=== PATIENT | male | born 1955 | race Caucasian/White ===

== ENCOUNTER 2017-01-25 07:27 | Emergency (ER) | payer MEDICARE, MEDICAID ==
[2017-01-25 07:51] VITALS: BP 157/99
--- NOTE | 2017-01-25 07:53 | EDM.PDOC ---
ED UPPER BACK/NECK PAIN/INJURY - General Chief Complaint: Back Pain or Injury Stated Complaint: PAIN FROM NECK TO SHOULDER Time Seen by Provider: 01/25/17 07:52 Source of Information: Reports: Patient, RN, RN notes reviewed History Limitations: Reports: No limitations - History of Present Illness INITIAL COMMENTS - FREE TEXT/NARRATIVE: C/O flare up of chronic neck pain with radiating pain through right trapezius region into Rt shoulder blade and down Rt arm to fingers. Pt has had 4 c-spine surgeries and had an MRI about 3 weeks ago at [facility] in [place]. Pt has been building a deck and flared up his neck pain. Denies any other acute injury. He also c/o a "lump" between the right 1st and 2nd MT heads that has increased in size over the past 3 weeks. He saw a doctor in [place] who referred him to a surgeon, but will not be seen for 5 weeks. Timing/Duration: Reports: Constant Location: Reports: radiating pain Quality: Reports: Same as previous episode, Sharp Severity: severe Place of Occurrence: home Improves with: Reports: None Worsens with: Reports: None Context: Reports: chronic pain/injury Associated Symptoms: Reports: Denies symptoms - Related Data Allergies/ADRs: Allergies Allergy/AdvReac Type Severity Reaction Status Date / Time No Known Allergies Allergy Verified 01/25/17 07:44 Home Meds: Home Meds . [No Known Home Meds] 01/25/17 [History] Past Medical History Musculoskeletal History: Reports: Neck pain, chronic, Other (see below) (Rt foot pain/cyst) Social & Family History - Family History Family Medical History: Noncontributory - Tobacco Use Smoking Status *Q: Never Smoker - Caffeine Use Caffeine Use: Reports: None - Recreational Drug Use Recreational Drug Use: No - Living Situation & Occupation Living situation: Reports: with significant other Occupation: disabled ED ROS GENERAL - Review of Systems Review Of Systems: ROS reveals no pertinent complaints other than HPI. ED EXAM, UPPER BACK/NECK PAIN - Physical Exam Exam: See Below Exam Limited By: No limitations General Appearance: alert, WD/WN, no apparent distress Throat/Mouth Exam: Normal voice, No airway compromise Head Exam: atraumatic, normocephalic Neck Exam: limited range of motion, muscle spasm, painful range of motion, tenderness (Rt cervical paraspinal). No: spinous processes tender Nexus Criteria: No: posterior, midline cervical tenderness, evidence of intoxication, altered level of consciousness, focal neurological deficit, painful distracting injuries Cardiovascular/Respiratory: regular rate, rhythm Extremities: normal range of motion, no pedal edema, normal capillary refill, other (rubbery tender mass between right foot 1st/2nd MT heads, no erythema or increased warmth) Course - Vital Signs Last Recorded V/S: Last Vital Signs Temp 36.3 C 01/25/17 07:35 Pulse 72 01/25/17 07:35 Resp 18 01/25/17 07:35 BP 157/99 H 01/25/17 07:35 Pulse Ox 98 01/25/17 07:35 - Orders/Labs/Meds Meds: Medications Discontinued Medications Generic Name Dose Route Start Last Admin Trade Name Irvin PRN Reason Stop Dose Admin Hydrocodone Bitart/Acetaminophen 1 tab 01/25/17 08:03 01/25/17 08:15 [place] 325-10 Mg PO 01/25/17 08:04 1 tab ONETIME ONE Administration Cyclobenzaprine HCl 10 mg 01/25/17 08:04 01/25/17 08:16 Flexeril PO 01/25/17 08:05 10 mg ONETIME ONE Administration Dexamethasone 8 mg 01/25/17 08:02 01/25/17 08:16 Dexamethasone IM 01/25/17 08:03 8 mg ONETIME ONE Administration Departure - Departure Time of Disposition: 08:04 Disposition: Home, Self-Care 01 Condition: fair Clinical Impression: Cervical radiculopathy Capsulitis of foot Qualifiers: Laterality: right Qualified Code(s): M77.51 - Other enthesopathy of right foot Instructions: Cervical Radiculopathy Forms: ED Department Discharge Additional Instructions: Wear rigid bottom surgical shoe on right foot. Rx: Diclofenac DR 75mg Rx: Gabapentin 300mg Follow up with Dr. Linda Abad at [facility] in [place] this week. Follow up to establish care with Dr. Emil Powell at [facility].
[2017-01-25] MEDS ORDERED: Dexamethasone 4 MG/ML SDV IM ONE (08:02)
[2017-01-25] MEDS ORDERED: Acetaminophen/HYDROcodone 325-10 MG Tab PO ONE (08:03)
[2017-01-25] MEDS ORDERED: Cyclobenzaprine 10 MG Tab PO ONE (08:04)
== END 2017-01-25 08:45 | disposition home or self-care (01) ==
LOC: DL.ED 07:27
DX: M54.12 Radiculopathy, cervical region (principal); M77.51 Other enthesopathy of right foot and ankle
CPT/HCPCS: 96372; 99283; A9270; J1100

== ENCOUNTER 2017-02-14 01:49 | Emergency (ER) | payer MEDICARE, MEDICAID ==
[2017-02-14] MEDS ORDERED: Acetaminophen/HYDROcodone 325-10 MG Tab PO ONE (02:31)
[2017-02-14] MEDS ORDERED: Acetaminophen/HYDROcodone 325-10 MG Tab ONE (02:31)
--- NOTE | 2017-02-14 02:33 | EDM.PDOC ---
ED HPI GENERAL MEDICAL PROBLEM - General Chief Complaint: General Stated Complaint: NOT FEELING WELL Time Seen by Provider: 02/14/17 02:29 Source of Information: Reports: Patient History Limitations: Reports: No Limitations - History of Present Illness INITIAL COMMENTS - FREE TEXT/NARRATIVE: c/o 2 weeks h/o pain in rectal area, so much that it's hard for him to sleep. sees Dr Abad Thursday. Rectal Pain Score (Numeric/FACES): 7 - Related Data Allergies Allergy/AdvReac Type Severity Reaction Status Date / Time Penicillins Allergy Hives Verified 02/14/17 02:08 Home Meds: Home Meds Acetaminophen/oxyCODONE [Percocet 325-5 MG] 1 tab PO ASDIRECTED PRN 02/14/17 [ History] Past Medical History Respiratory History: Reports: Sleep Apnea Musculoskeletal History: Reports: Neck Pain, Chronic, Other (See Below) Other Musculoskeletal History: Fusion of c- spine x2. And lower back ruptured disc. Psychiatric History: Reports: Anxiety, Depression - Past Surgical History GI Surgical History: Reports: Cholecystectomy Musculoskeletal Surgical History: Reports: Other (See Below) Social & Family History - Family History Family Medical History: Noncontributory - Tobacco Use Smoking Status *Q: Never Smoker Second Hand Smoke Exposure: No - Caffeine Use Caffeine Use: Reports: Soda - Recreational Drug Use Recreational Drug Use: No - Living Situation & Occupation Living situation: Reports: with Significant Other Occupation: Disabled ED ROS GENERAL - Review of Systems Review Of Systems: ROS reveals no pertinent complaints other than HPI. ED EXAM, GENERAL - Physical Exam Exam: See Below Exam Limited By: No Limitations General Appearance: Alert, WD/WN, No Apparent Distress Ears: Hearing Grossly Normal Throat/Mouth: Normal Voice, No Airway Compromise Head: Atraumatic Neck: Non-Tender, Full Range of Motion Respiratory/Chest: No Respiratory Distress Cardiovascular: Regular Rate, Rhythm GI/Abdominal: Soft, Non-Tender Rectal (Males) Exam: Normal Exam, Hemorrhoids, Other (multiple extrernal non thrombosed haemorrhoids.). No: Perirectal Abscess Neurological: Alert, Oriented, Normal Cognition, Normal Gait, No Motor/Sensory Deficits Psychiatric: Normal Affect, Normal Mood Skin Exam: Warm, Dry Lymphatic: No Adenopathy Course - Vital Signs Last Recorded V/S: Last Vital Signs Temp 35.5 C 02/14/17 01:59 Pulse 74 05/27/17 01:59 Resp 16 02/14/17 01:59 BP 160/104 H 02/14/17 01:59 Pulse Ox 99 02/14/17 01:59 Departure - Departure Time of Disposition: 02:31 Disposition: Home, Self-Care 01 Condition: good Clinical Impression: Hemorrhoidal skin tags - Discharge Information Instructions: Hemorrhoids, [id number] Forms: ED Department Discharge Additional Instructions: 1) try sitz bath 2) see Dr Abad Thursday for referral for Sr Nguyễn rx togo: andrzejco x 1
[2017-02-14] MEDS ORDERED: cloNIDine 0.1 MG Tab PO ONE (02:35)
[2017-02-14 03:16] VITALS: BP 142/94
== END 2017-02-14 03:19 | disposition home or self-care (01) ==
LOC: DL.ED 01:49
DX: K64.4 Residual hemorrhoidal skin tags (principal); F41.9 Anxiety disorder, unspecified; F32.9 Major depressive disorder, single episode, unspecified; Z90.49 Acquired absence of other specified parts of digestive tract; Z88.0 Allergy status to penicillin
CPT/HCPCS: 99282; A9270; 99283

== ENCOUNTER 2017-05-05 09:45 | Emergency (ER) | payer MEDICARE, MEDICAID ==
[2017-05-05 10:08] VITALS: BP 131/100
[2017-05-05] MEDS ORDERED: Sulfamethoxazole/Trimethoprim 800-160 MG Tab PO ONE (10:17)
[2017-05-05] MEDS ORDERED: Clindamycin HCl 150 MG Cap PO ONE (10:17)
[2017-05-05] MEDS ORDERED: Diphtheria,Pertussis(Acell),Tetanus Vaccine 0.5 ML SDV IM ONE (10:17)
--- NOTE | 2017-05-05 10:30 | EDM.PDOC ---
ED HPI GENERAL MEDICAL PROBLEM - General Chief Complaint: Bite:Animal, Insect Stated Complaint: PUNCH IN [id number].[id number] Time Seen by Provider: 05/05/17 10:20 Source of Information: Reports: Patient History Limitations: Reports: No Limitations - History of Present Illness INITIAL COMMENTS - FREE TEXT/NARRATIVE: This 61 yo male patient reports to the ED with a cat bite and scratches on his right arm. The patient reports the incident happened on Thursday (05/02/17). Since the incident, the patient has noticed increased pain and swelling of the right wrist and several areas of erythema up his right arm. The patient reports increased pain in his right wrist. The patient's significant other was treated for a cat bite yesterday. The cat was left behind by a family, but the cat is believed to be up to date on all immunizations. Onset: Gradual Duration: Day(s): (3), Constant, Getting Worse Location: Reports: Upper Extremity, Right Quality: Reports: Ache, Dull, Pressure Severity: Moderate Improves with: Reports: None Worsens with: Reports: None Context: Reports: Other Associated Symptoms: Reports: No Other Symptoms Right Wrist Pain Score (Numeric/FACES): 8 - Related Data Allergies Allergy/AdvReac Type Severity Reaction Status Date / Time Penicillins Allergy Hives Verified 02/14/17 02:08 Home Meds: Home Meds . [No Known Home Meds] 05/05/17 [History] Past Medical History Respiratory History: Reports: Sleep Apnea Musculoskeletal History: Reports: Neck Pain, Chronic, Other (See Below) Other Musculoskeletal History: Fusion of c- spine x2. And lower back ruptured disc. Psychiatric History: Reports: Anxiety, Depression - Past Surgical History GI Surgical History: Reports: Cholecystectomy Musculoskeletal Surgical History: Reports: Other (See Below) Social & Family History - Family History Family Medical History: Noncontributory - Tobacco Use Smoking Status *Q: Never Smoker Second Hand Smoke Exposure: No - Caffeine Use Caffeine Use: Reports: Soda - Recreational Drug Use Recreational Drug Use: No - Living Situation & Occupation Living situation: Reports: with Significant Other Occupation: Disabled ED ROS GENERAL - Review of Systems Review Of Systems: ROS reveals no pertinent complaints other than HPI. ED EXAM, ANIMAL BITE - Physical Exam Exam: Not Obtained Exam Limited By: No Limitations General Appearance: Alert, WD/WN, Mild Distress Eye Exam: Bilateral Eye: EOMI, Normal Inspection, PERRL Ears: Normal External Exam, Normal Canal, Hearing Grossly Normal, Normal TMs Nose: Normal Inspection, Normal Mucosa, No Blood Throat/Mouth: Normal Inspection, Normal Lips, Normal Teeth, Normal Gums, Normal Oropharynx, Normal Voice, No Airway Compromise Head: Atraumatic, Normocephalic Neck: Normal Inspection, Supple, Non-Tender, Full Range of Motion Respiratory/Chest: No Respiratory Distress, Lungs Clear, Normal Breath Sounds, No Accessory Muscle Use, Chest Non-Tender Cardiovascular: Normal Peripheral Pulses, Regular Rate, Rhythm, No Edema, No Gallop, No JVD, No Murmur, No Rub GI/Abdominal: Normal Bowel Sounds, Soft, Non-Tender, No Organomegaly, No Distention, No Abnormal Bruit, No Mass (Male) Exam: Deferred Rectal (Males) Exam: Deferred Back Exam: Normal Inspection, Full Range of Motion, NT Extremities: Joint Swelling (right wrist with evidence of healing wounds resulting from a cat (bite and scratches)) Neurological: Alert, Oriented, CN II-XII Intact, Normal Cognition, Normal Gait, Normal Reflexes, No Motor/Sensory Deficits Psychiatric: Normal Affect, Normal Mood Skin Exam: Other (The patient has erythema of the right wrist with several erythematous patches up his right arm (medial elbow and anterior shoulder). There was no evidence of drainage. ) Lymphadenopathy: Bilateral: No Adenopathy Lymphatic: No Adenopathy Course - Vital Signs Last Recorded V/S: Last Vital Signs Temp 36.6 C 05/05/17 09:49 Pulse 114 H 05/05/17 09:49 Resp 16 05/05/17 09:49 BP 131/100 H 05/05/17 09:49 Pulse Ox 97 05/05/17 09:49 - Orders/Labs/Meds Orders: Active Orders 24 hr Category Date Time Status Vaccines to be Administered [RC] PER UNIT ROUTINE Care 05/05/17 10:18 Ordered Meds: Medications Discontinued Medications Generic Name Dose Route Start Last Admin Trade Name Freq PRN Reason Stop Dose Admin Clindamycin HCl 300 mg 05/05/17 10:17 Cleocin PO 05/05/17 10:18 ONETIME ONE Diphtheria/Tetanus/Acell Pertussis 0.5 ml 05/05/17 10:17 Adacel IM 05/05/17 10:18 .ONCE ONE Trimethoprim/Sulfamethoxazole 1 tab 05/05/17 10:17 Septra Ds PO 05/05/17 10:18 ONETIME ONE Departure - Departure Time of Disposition: 10:25 Disposition: Home, Self-Care 01 Condition: Fair Clinical Impression: Cat bite involving extremity Cellulitis Qualifiers: Site of cellulitis: extremity Site of cellulitis of extremity: upper extremity Laterality: right Qualified Code(s): L03.113 - Cellulitis of right upper limb - Discharge Information Instructions: Animal Bite, [id number], Cellulitis, Adult, [id number] Referrals: PCP,None [Primary Care Provider] - Forms: ED Department Discharge Care Plan Goals: The patient was advised of the examination results during the visit. The patient was given an injection of Adacel, an oral dose of Bactrim DS and an oral dose of Clindamycin while in the ED. The patient was discharged with a script for Bactrim DS #20 to take 1 by mouth 2 times per day for 10 days and Clindamycin (300 mg) #40 to take 1 by mouth 4 times per day for 10 days. If the patient has any additional symptoms or concerns, the patient should follow-up with his primary care facility or return to the emergency department. - My Orders Last 24 Hours: My Active Orders 05/05/17 10:18 Vaccines to be Administered [RC] PER UNIT ROUTINE - Assessment/Plan Last 24 Hours: My Active Orders 05/05/17 10:18 Vaccines to be Administered [RC] PER UNIT ROUTINE
== END 2017-05-05 10:41 | disposition home or self-care (01) ==
LOC: DL.ED 09:45
DX: S61.551A Open bite of right wrist, initial encounter (principal); L03.113 Cellulitis of right upper limb; W55.01XA Bitten by cat, initial encounter; Z88.0 Allergy status to penicillin; Z23 Encounter for immunization; Z90.49 Acquired absence of other specified parts of digestive tract
CPT/HCPCS: 90471; 90715; 99283; A9270

== ENCOUNTER 2017-05-15 20:43 | Emergency (ER) | payer MEDICARE, MEDICAID ==
[2017-05-15] MEDS ORDERED: methylPREDNISolone Sodium Succinate 125 MG/2 ML SDV IM ONE (21:04)
[2017-05-15] MEDS ORDERED: diphenhydrAMINE 50 MG Cap PO ONE (21:04)
--- NOTE | 2017-05-15 21:09 | EDM.PDOC ---
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 Left Feet Pain Score (Numeric/FACES): 8 - Related Data Allergies Allergy/AdvReac Type Severity Reaction Status Date / Time Penicillins Allergy Hives Verified 05/15/17 20:51 Home Meds: Home Meds Acetaminophen/oxyCODONE [Percocet 325-10 MG] 1 tab PO TID PRN 05/15/17 [History] Clindamycin HCl [Clindamycin HCl] 1 tab PO QID 05/15/17 [History] Sulfamethoxazole/Trimethoprim [Sulfamethoxazole-Tmp Ds Tablet] 1 tab PO BID [History] Past Medical History Respiratory History: Reports: Sleep Apnea Musculoskeletal History: Reports: Neck Pain, Chronic, Other (See Below) Other Musculoskeletal History: Fusion of c- spine x2. And lower back ruptured disc. Psychiatric History: Reports: Anxiety, Depression - Past Surgical History GI Surgical History: Reports: Cholecystectomy Musculoskeletal Surgical History: Reports: Other (See Below) Social & Family History - Family History Family Medical History: Noncontributory - Tobacco Use Smoking Status *Q: Never Smoker Second Hand Smoke Exposure: No - Caffeine Use Caffeine Use: Reports: Soda - Recreational Drug Use Recreational Drug Use: No - Living Situation & Occupation Living situation: Reports: with Significant Other Occupation: Disabled ED ROS ALLERGIC REACTION - Review of Systems Review Of Systems: ROS reveals no pertinent complaints other than HPI. ED EXAM GENERAL NO PERIP PULSE - Physical Exam Exam: See Below Exam Limited By: No Limitations General Appearance: Alert, WD/WN, No Apparent Distress, Anxious Ears: Hearing Grossly Normal Throat/Mouth: Normal Voice, No Airway Compromise Head: Atraumatic Neck: Non-Tender, Full Range of Motion Respiratory/Chest: No Respiratory Distress Cardiovascular: Regular Rate, Rhythm GI/Abdominal: Soft, Non-Tender Extremities: Other (left plantar local swelling minimal erythema no lymphangitis , NV wnl) Neurological: Alert, Oriented, Normal Cognition, Normal Gait, No Motor/Sensory Deficits Psychiatric: Anxious Skin Exam: Warm, Dry, Normal Color Lymphatic: No Adenopathy Course - Vital Signs Last Recorded V/S: Last Vital Signs Temp 36.6 C 05/15/17 20:47 Pulse 89 05/15/17 20:47 Resp 18 05/15/17 20:47 BP 149/91 H 05/15/17 20:47 Pulse Ox 96 05/15/17 20:47 - Orders/Labs/Meds Orders: Active Orders 24 hr Category Date Time Status diphenhydrAMINE [Benadryl] Med 05/15/17 21:04 Once 50 mg PO ONETIME ONE methylPREDNISolone Sod Succ [Solu-MEDROL] Med 05/15/17 21:04 Once 125 mg IM ONETIME ONE Departure - Departure Time of Disposition: 21:07 Disposition: Home, Self-Care 01 Condition: Good Clinical Impression: Insect bite Qualifiers: Encounter type: initial encounter Qualified Code(s): W57.XXXA - Bitten or stung by nonvenomous insect and other nonvenomous arthropods, initial encounter - Discharge Information Instructions: Insect Bite, [id number] Additional Instructions: 1) take TWO benadryl 25mg 2 to 3 times daily for swelling and itch 2) follow up at clinic or recheck as needed rx given; medrol dospak - My Orders Last 24 Hours: My Active Orders 05/15/17 21:04 diphenhydrAMINE [Benadryl] 50 mg PO ONETIME ONE methylPREDNISolone Sod Succ [Solu-MEDROL] 125 mg IM ONETIME ONE - Assessment/Plan Last 24 Hours: My Active Orders 05/15/17 21:04 diphenhydrAMINE [Benadryl] 50 mg PO ONETIME ONE methylPREDNISolone Sod Succ [Solu-MEDROL] 125 mg IM ONETIME ONE
[2017-05-15 21:30] VITALS: BP 123/84
== END 2017-05-15 21:29 | disposition home or self-care (01) ==
LOC: DL.ED 20:43
DX: T63.451A Toxic effect of venom of hornets, accidental (unintentional), initial encounter (principal); Z88.0 Allergy status to penicillin; Z90.49 Acquired absence of other specified parts of digestive tract
CPT/HCPCS: 96372; 99283; J2930; Q0163

== ENCOUNTER 2017-07-17 08:06 | Emergency (ER) | payer MEDICAID, MEDICARE ==
--- NOTE | 2017-07-17 08:38 | EDM.PDOC ---
ED HPI GENERAL MEDICAL PROBLEM - General Chief Complaint: Upper Extremity Injury/Pain Stated Complaint: RIGHT ARM [id number] Time Seen by Provider: 07/17/17 08:22 Source of Information: Reports: Patient History Limitations: Reports: No Limitations - History of Present Illness INITIAL COMMENTS - FREE TEXT/NARRATIVE: 61 yo white male c/o 2 days of right elbow pain and weakness w/ decreased ROM Onset Date: 07/15/17 Onset Time: 10:00 Duration: Day(s): Location: Reports: Upper Extremity, Left Quality: Reports: Ache Severity: Moderate Improves with: Reports: Rest Worsens with: Reports: Movement Context: Reports: Activity, Trauma (previous Day injury) Associated Symptoms: Reports: No Other Symptoms Treatments LENS MOUNTER: Reports: Other (see below) Other Treatments LENS MOUNTER: Body back and Pain Right Elbow Pain Score (Numeric/FACES): 9 - Related Data Allergies Allergy/AdvReac Type Severity Reaction Status Date / Time Penicillins Allergy Hives Verified 07/17/17 08:33 Home Meds: Home Meds Acetaminophen/oxyCODONE [Percocet 325-10 MG] 1 tab PO TID PRN 05/15/17 [History] Clindamycin HCl [Clindamycin HCl] 1 tab PO QID 05/15/17 [History] Sulfamethoxazole/Trimethoprim [Sulfamethoxazole-Tmp Ds Tablet] 1 tab PO BID [History] Past Medical History Respiratory History: Reports: Sleep Apnea Musculoskeletal History: Reports: Neck Pain, Chronic, Other (See Below) Other Musculoskeletal History: Fusion of c- spine x2. And lower back ruptured disc. Psychiatric History: Reports: Anxiety, Depression - Past Surgical History GI Surgical History: Reports: Cholecystectomy Musculoskeletal Surgical History: Reports: Other (See Below) Other Musculoskeletal Surgeries/Procedures:: Knee surgery and back surgery Social & Family History - Family History Family Medical History: Noncontributory - Tobacco Use Smoking Status *Q: Never Smoker Second Hand Smoke Exposure: No - Caffeine Use Caffeine Use: Reports: Soda - Recreational Drug Use Recreational Drug Use: No - Living Situation & Occupation Living situation: Reports: with Significant Other Occupation: Disabled Review of Systems - Review of Systems Review Of Systems: See Below Constitutional: Reports: No Symptoms Eyes: Reports: No Symptoms Ears: Reports: No Symptoms Nose: Reports: No Symptoms Mouth/Throat: Reports: No Symptoms Respiratory: Reports: No Symptoms Cardiovascular: Reports: No Symptoms GI/Abdominal: Reports: No Symptoms Genitourinary: Reports: No Symptoms Musculoskeletal: Reports: Joint Pain (right elbow) Skin: Reports: No Symptoms Neurological: Reports: No Symptoms Psychiatric: Reports: No Symptoms ED EXAM, GENERAL - Physical Exam Exam: See Below Exam Limited By: No Limitations General Appearance: Alert, No Apparent Distress Eye Exam: Bilateral Eye: PERRL Ears: Normal External Exam Nose: Normal Inspection Throat/Mouth: Normal Inspection, Normal Lips Head: Atraumatic, Normocephalic Neck: Normal Inspection Respiratory/Chest: No Respiratory Distress, Lungs Clear Cardiovascular: Normal Peripheral Pulses, Regular Rate, Rhythm GI/Abdominal: Normal Bowel Sounds Back Exam: Normal Inspection Extremities: Normal Inspection, Normal Range of Motion, Other (pain w/ movement of right elbow ) Neurological: Alert, Oriented, CN II-XII Intact Psychiatric: Normal Affect Skin Exam: Warm, Dry, Intact, Normal Color Lymphatic: No Adenopathy Course - Vital Signs Last Recorded V/S: Last Vital Signs Temp 36.0 C 07/17/17 08:15 Pulse Resp 14 07/17/17 08:15 BP 154/93 H 07/17/17 08:15 Pulse Ox 99 07/17/17 08:15 Departure - Departure Time of Disposition: 08:48 Disposition: Home, Self-Care 01 Condition: Good Clinical Impression: Strain of elbow, right Qualifiers: Encounter type: initial encounter Qualified Code(s): S56.911A - Strain of unspecified muscles, fascia and tendons at forearm level, right arm, initial encounter - Discharge Information Instructions: Pain Medicine Instructions, [id number] Additional Instructions: rest Moist heat TID X 15 mins. For Pain take otc : ADVIL 600mg TID w/ Food OR TYLENOL ES 500mg QID as needed F/U w/ PCP for re-evaluation and possible referral to ORTHOPEDIC
--- NOTE | 2017-07-17 08:44 | CR ---
Clinical history: 61-year-old male complaining of elbow pain. Interpretation: 3 views right elbow confirm the presence of chronic arthritis i.e. bony spurs identif ied respectively at the insertion point of the triceps tendon posteriorly on the olecranon process pr oximal ulna and... both epicondyles distal humerus. No sign of pathologic skeletal lesion, right elbow joint effusion, acute fracture or dislocation.
[2017-07-17] MEDS ORDERED: Ketorolac 30 MG/ML SDV IM ONE (08:46)
[2017-07-17] MEDS ORDERED: Acetaminophen 500 MG Tab PO ONE (08:46)
[2017-07-17 09:03] VITALS: BP 134/92
== END 2017-07-17 09:05 | disposition home or self-care (01) ==
LOC: DL.ED 08:06
DX: S46.811A Strain of other muscles, fascia and tendons at shoulder and upper arm level, right arm, initial encounter (principal); Z88.0 Allergy status to penicillin; X58.XXXA Exposure to other specified factors, initial encounter
CPT/HCPCS: 73070; 96372; 99283; A9270; J1885

== ENCOUNTER 2017-09-07 20:05 | Inpatient (IN) | payer MEDICARE ==
[2017-09-07] MEDS ORDERED: Iopamidol 612 MG/ML 100 ML Bottle IVPUSH ONE (20:24)
[2017-09-07] MEDS ORDERED: HYDROmorphone 1 MG/ML Syringe IVPUSH ONE ×2 (20:25→22:11)
[2017-09-07] MEDS ORDERED: Ondansetron 4 MG/2 ML SDV IV ONE (20:25)
[2017-09-07] MEDS ORDERED: Sodium Chloride 0.9% 1,000 ML IV ONE ×2 (20:26→22:47)
[2017-09-07] MEDS ORDERED: Pantoprazole 40 MG Vial IVPUSH ONE (20:27)
--- NOTE | 2017-09-07 20:29 | EDM.PDOC ---
ED HPI GENERAL MEDICAL PROBLEM - General Chief Complaint: Abdominal Pain Stated Complaint: VOMITING, ABD PAINS, [id number] Time Seen by Provider: 09/07/17 20:15 Source of Information: Reports: Patient History Limitations: Reports: No Limitations - History of Present Illness INITIAL COMMENTS - FREE TEXT/NARRATIVE: ED with c/o severe sudden onset of abdominal pain and vomiting at 330. Vomited 8 times [employer], large amounts of liquid. Prior hx cholecystectomy. Pain generalized constant Onset: Today - Related Data Allergies Allergy/AdvReac Type Severity Reaction Status Date / Time Penicillins Allergy Hives Verified 09/07/17 20:13 Home Meds: Home Meds QUEtiapine Fumarate [Quetiapine Fumarate] 1 tab PO BEDTIME 09/07/17 [History] Past Medical History Respiratory History: Reports: Sleep Apnea Musculoskeletal History: Reports: Neck Pain, Chronic, Other (See Below) Other Musculoskeletal History: Fusion of c- spine x2. And lower back ruptured disc. Psychiatric History: Reports: Anxiety, Depression - Past Surgical History GI Surgical History: Reports: Cholecystectomy Musculoskeletal Surgical History: Reports: Other (See Below) Other Musculoskeletal Surgeries/Procedures:: Knee surgery and back surgery Social & Family History - Family History Family Medical History: Noncontributory - Tobacco Use Smoking Status *Q: Never Smoker Second Hand Smoke Exposure: No - Caffeine Use Caffeine Use: Reports: Soda - Alcohol Use Days Per Week of Alcohol Use: 1 Number of Drinks Per Day: 3 Total Drinks Per Week: 3 - Recreational Drug Use Recreational Drug Use: No - Living Situation & Occupation Living situation: Reports: with Significant Other Occupation: Disabled ED ROS GENERAL - Review of Systems Review Of Systems: See Below Constitutional: Reports: No Symptoms HEENT: Reports: No Symptoms Respiratory: Reports: No Symptoms Cardiovascular: Reports: No Symptoms Endocrine: Reports: No Symptoms GI/Abdominal: Reports: Abdominal Pain, Distension, Vomiting : Reports: No Symptoms Musculoskeletal: Reports: No Symptoms Skin: Reports: No Symptoms Neurological: Reports: No Symptoms ED EXAM, GI/ABD - Physical Exam Exam: See Below Exam Limited By: No Limitations General Appearance: Alert, Moderate Distress Eyes: Bilateral: EOMI Ears: Normal External Exam Nose: Normal Inspection Throat/Mouth: Normal Inspection Head: Atraumatic, Normocephalic Neck: Normal Inspection Respiratory/Chest: No Respiratory Distress, Lungs Clear Cardiovascular: Normal Peripheral Pulses, Regular Rate, Rhythm, Tachycardia GI/Abdominal Exam: Distended, Tender, Abnormal Bowel Sounds. No: Normal Bowel Sounds Back Exam: Normal Inspection, Full Range of Motion Extremities: Normal Inspection Neurological: Alert, Oriented, Normal Cognition Psychiatric: Normal Affect, Normal Mood Skin Exam: Warm, Dry, Intact, Normal Color Course - Vital Signs Last Recorded V/S: Last Vital Signs Temp 98.4 F 09/07/17 22:53 Pulse 104 H 09/07/17 22:53 Resp 16 09/07/17 22:53 BP 142/99 H 09/07/17 22:53 Pulse Ox 95 09/07/17 22:53 - Orders/Labs/Meds Orders: Active Orders 24 hr Category Date Time Status Cyclobenzaprine [Flexeril] Med 09/07/17 22:51 Active 10 mg PO Q8H PRN QUEtiapine [SEROquel] Med 09/08/17 21:00 Active 200 mg PO BEDTIME Medication Orders Acetaminophen (Tylenol) 650 mg PO Q4H PRN PRN Reason: Pain (Mild 1-3)/fever Hydrocodone Bitart/Acetaminophen ([place] 325-10 Mg) 1 tab PO Q4H PRN PRN Reason: Pain (moderate 4-6) Last Admin: 09/08/17 03:19 Dose: 1 tab Cyclobenzaprine HCl (Flexeril) 10 mg PO Q8H PRN PRN Reason: back pain/spasm Enoxaparin Sodium (Lovenox) 40 mg SUBCUT DAILY NILDA Hydromorphone HCl (Dilaudid) 1 mg IVPUSH Q2H PRN PRN Reason: Pain (severe 7-10) Potassium Chloride/Dextrose/Sod Cl (D5 1/2 Ns W/ 20 Meq/L Kcl) 1,000 mls @ 150 mls/hr IV ASDIRECTED NILDA Stop: 09/09/17 06:24 Last Admin: 09/08/17 00:11 Dose: 150 mls/hr Ondansetron HCl (Zofran) 8 mg IVPUSH Q8H PRN PRN Reason: Nausea/Vomiting Pantoprazole Sodium (Protonix Iv) 40 mg IVPUSH Q24H NILDA Promethazine HCl (Phenergan) 12.5 mg IM Q6H PRN PRN Reason: Nausea/Vomiting Quetiapine Fumarate (Seroquel) 200 mg PO BEDTIME [facility] Zolpidem Tartrate (Ambien) 5 mg PO BEDTIME PRN PRN Reason: Sleep Last Admin: 09/08/17 00:05 Dose: 5 mg Labs: Laboratory Tests 09/07/17 09/07/17 Range/Units 20:21 20:21 WBC 14.8 H (5.0-10.0) 10^3/uL RBC 5.98 (4.6-6.2) 10^6/uL Hgb 19.1 H (14.0-18.0) g/dL Hct 53.3 (40.0-54.0) % MCV 89.1 (80-100) fL MCH 31.9 (27.0-34.0) pg MCHC 35.8 H (33.0-35.0) g/dL Plt Count 208 (150-450) 10^3/uL Neut % (Auto) 92.1 H (42.2-75.2) % Lymph % (Auto) 2.3 L (20.5-50.1) % [place] % (Auto) 5.3 (2-8) % Eos % (Auto) 0.2 L (1.0-3.0) % Baso % (Auto) 0.1 (0.0-1.0) % Sodium 140 (135-145) mmol/L Potassium 3.9 (3.6-5.0) mmol/L Chloride 103 (101-111) mmol/L Carbon Dioxide 22.0 (21.0-31.0) mmol/L Anion Gap 18.9 BUN 29 H (7-18) mg/dL Creatinine 1.1 (0.6-1.3) mg/dL Est Cr Clr Drug Dosing 68.23 mL/min Estimated GFR (MDRD) > 60 BUN/Creatinine Ratio 26.36 Glucose 155 H (74-105) mg/dL Calcium 9.1 (8.4-10.2) mg/dl Total Bilirubin 1.2 H (0.2-1.0) mg/dL AST 29 (10-42) IU/L ALT 29 (10-60) IU/L Alkaline Phosphatase 66 (42-121) IU/L Total Protein 7.8 (6.7-8.2) g/dl Albumin 4.4 (3.2-5.5) g/dl Globulin 3.4 Albumin/Globulin Ratio 1.29 Amylase 35 (28-100) U/L Lipase 24 (22-51) U/L Meds: Medications Generic Name Dose Route Start Last Admin Trade Name Freq PRN Reason Stop Dose Admin Acetaminophen 650 mg 09/07/17 22:53 Tylenol PO Q4H PRN Pain (Mild 1-3)/fever Hydrocodone Bitart/Acetaminophen 1 tab 09/07/17 22:53 09/08/17 03:19 [place] 325-10 Mg PO 1 tab Q4H PRN Administration Pain (moderate 4-6) Cyclobenzaprine HCl 10 mg 09/07/17 22:51 Flexeril PO Q8H PRN back pain/spasm Enoxaparin Sodium 40 mg 09/08/17 09:00 Lovenox SUBCUT DAILY NILDA Hydromorphone HCl 1 mg 09/07/17 22:53 Dilaudid IVPUSH Q2H PRN Pain (severe 7-10) Potassium Chloride/Dextrose/Sod Cl 1,000 mls @ 150 mls/hr 09/07/17 23:45 00:11 D5 1/2 Ns W/ 20 Meq/L Kcl IV 09/09/17 06:24 150 mls/hr ASDIRECTED NILDA Administration Ondansetron HCl 8 mg 09/07/17 22:53 Zofran IVPUSH Q8H PRN Nausea/Vomiting Pantoprazole Sodium 40 mg 09/08/17 23:00 Protonix Iv IVPUSH Q24H NILDA Promethazine HCl 12.5 mg 09/07/17 22:53 Phenergan IM Q6H PRN Nausea/Vomiting Quetiapine Fumarate 200 mg 09/08/17 21:00 Seroquel PO BEDTIME NILDA Zolpidem Tartrate 5 mg 09/07/17 22:53 09/08/17 00:05 Ambien PO 5 mg BEDTIME PRN Administration Sleep Discontinued Medications Generic Name Dose Route Start Last Admin Trade Name Jaimeq PRN Reason Stop Dose Admin Hydromorphone HCl 1 mg 09/07/17 20:25 09/07/17 20:32 Dilaudid IVPUSH 09/07/17 20:26 1 mg ONETIME ONE Administration Hydromorphone HCl Confirm 09/07/17 22:11 09/07/17 22:18 Dilaudid Administered 09/07/17 22:12 1 mg Dose Administration 1 mg .ROUTE .STK-MED ONE Sodium Chloride 1,000 mls @ 999 mls/hr 09/07/17 20:26 09/07/17 20:30 Normal Saline IV 09/07/17 21:26 999 mls/hr .BOLUS ONE Administration Sodium Chloride 1,000 mls @ 999 mls/hr 09/07/17 22:47 09/07/17 23:07 Normal Saline IV 09/07/17 23:47 999 mls/hr .BOLUS ONE Administration Iopamidol 100 ml 09/07/17 20:24 09/07/17 21:38 Isovue-300 (61%) IVPUSH 09/07/17 20:25 100 ml ONETIME ONE Administration Metoclopramide HCl 10 mg 09/07/17 20:36 09/07/17 20:42 Reglan IVPUSH 09/07/17 20:37 10 mg ONETIME ONE Administration Ondansetron HCl 4 mg 09/07/17 20:25 09/07/17 20:30 Zofran IV 09/07/17 20:26 4 mg ONETIME ONE Administration Pantoprazole Sodium 40 mg 09/07/17 20:27 09/07/17 20:36 Protonix Iv IVPUSH 09/07/17 20:28 40 mg ONETIME ONE Administration Pantoprazole Sodium 40 mg 09/07/17 23:00 Protonix Iv IVPUSH Q24H NILDA Promethazine HCl Confirm 09/07/17 22:11 09/07/17 22:52 Phenergan Administered 09/07/17 22:12 Not Given Dose 25 mg .ROUTE .STK-MED ONE - Radiology Interpretation Free Text/Narrative:: CT abd: Suggestive of viral gastroenteritis, diverticula present, no signs of diverticulitis - Re-Assessments/Exams Free Text/Narrative Re-Assessment/Exam: 09/07/17 22:[address] Lugo here to evaluate patient. Patient admitted observation, abdominal pain , vomiting, dehydration Departure - Departure Time of Disposition: 22:50 Disposition: Admitted As Inpatient 66 Condition: Fair Clinical Impression: Abdominal pain Qualifiers: Abdominal location: generalized Qualified Code(s): R10.84 - Generalized abdominal pain Vomiting Qualifiers: Vomiting type: unspecified Vomiting Intractability: non-intractable Nausea presence: without nausea Qualified Code(s): R11.11 - Vomiting without nausea - Discharge Information
[2017-09-07] MEDS ORDERED: Metoclopramide 10 MG/2 ML SDV IVPUSH ONE (20:36)
[2017-09-07 20:51] LABS: CHLORIDE,CL 103 mmol/L (101-111); SODIUM,NA 140 mmol/L (135-145)
[2017-09-07] MEDS ORDERED: HYDROmorphone 1 MG/ML Syringe ONE (22:11)
[2017-09-07] MEDS ORDERED: Promethazine 25 MG/ML SDV IM ONE (22:11)
[2017-09-07] MEDS ORDERED: Promethazine 25 MG/ML SDV ONE (22:11)
[2017-09-07] MEDS ORDERED: Cyclobenzaprine 10 MG Tab PO PRN (22:51)
[2017-09-07] MEDS ORDERED: Promethazine 25 MG/ML SDV IM PRN (22:53)
[2017-09-07] MEDS ORDERED: Zolpidem 5 MG Tab PO PRN (22:53)
[2017-09-07] MEDS ORDERED: Acetaminophen 325 MG Tab PO PRN (22:53)
[2017-09-07] MEDS ORDERED: Ondansetron 4 MG/2 ML SDV IVPUSH PRN (22:53)
[2017-09-07] MEDS ORDERED: Pantoprazole 40 MG Vial IVPUSH SCH (23:00)
--- NOTE | 2017-09-07 23:14 | PCM.HP ---
H&P History of Present Illness - General Date of Service: 09/07/17 Admit Problem/Dx: Admission Diagnosis/Problem Admission Diagnosis/Problem Abdominal pain Source of Information: Patient, Significant Other History Limitations: Reports: No Limitations - History of Present Illness Initial Comments - Free Text/Narative: 61-year-old male with the past medical history of bipolar disorder, cervical spondylolysis, chronic back pain status post fusion of cervical spine, gout, migraine headache, history of cholecystectomy presents to the emergency room for having generalized abdominal pain, nausea, vomiting, one episode of diarrhea. Symptoms started today at 3:30 PM 2 hours after eating frozen pepperoni pizza that he had for a long unknown time in his freezer. He had multiple liquid emesis since then. He had one episode of large diarrhea before he came to the emergency room. He described his abdominal pain as cramping, rated between 6 and 9 out of 10, generalized, nothing mixed worse or better, made him sweat. Patient denies upper respiratory symptoms, chest pain, shortness breath, palpitation, cough, constipation, blood in the emesis, blood in stool, dysuria, urinary frequency, history of peptic ulcer, history of chronic GI disease, bowel obstruction, history of abdominal surgery other than cholecystectomy years ago, heart disease. Patient denies similar problem in the past. In emergency room patient received Dilaudid 1 mg twice which helped the pain. His laboratory data reported WBC 14.8 with left shift. Sodium 140. Potassium 3.9. Chloride 103. CO2 22. BNP 129. Creatinine 1.1. Glucose 155. Total bilirubin 1.2. AST 29. ALT 29. Alkaline phosphatase 66. Lipase 24. Amylase 35. CT abdomen reported no acute findings other than what is consistent with gastroenteritis. On exam patient looks in mild distress due to pain and nausea. His abdomen exam was significant for hypoactive bowel sounds and mild to moderate generalized tenderness to deep palpation, no rebound/rigidity/ guarding. He received 1 L of normal saline, pantoprazole IV, Reglan and Zofran in admission to the Dilaudid - Related Data Allergies/Adverse Reactions: Allergies Allergy/AdvReac Type Severity Reaction Status Date / Time Penicillins Allergy Hives Verified 09/07/17 20:13 Past Medical History Respiratory History: Reports: Sleep Apnea Musculoskeletal History: Reports: Neck Pain, Chronic, Other (See Below) Other Musculoskeletal History: Fusion of c- spine x2. And lower back ruptured disc. Psychiatric History: Reports: Anxiety, Depression - Past Surgical History GI Surgical History: Reports: Cholecystectomy Musculoskeletal Surgical History: Reports: Other (See Below) Other Musculoskeletal Surgeries/Procedures:: Knee surgery and back surgery Social & Family History - Family History Family Medical History: Noncontributory - Tobacco Use Smoking Status *Q: Never Smoker Second Hand Smoke Exposure: No - Caffeine Use Caffeine Use: Reports: Soda - Alcohol Use Days Per Week of Alcohol Use: 1 Number of Drinks Per Day: 3 Total Drinks Per Week: 3 - Recreational Drug Use Recreational Drug Use: No - Living Situation & Occupation Living situation: Reports: with Significant Other Occupation: Disabled H&P Review of Systems - Review of Systems: Review Of Systems: ROS reveals no pertinent complaints other than HPI. Exam - Exam Exam: See Below - Vital Signs Vital Signs: Last Vital Signs Temp 36.8 C 09/07/17 20:10 Pulse 127 H 09/07/17 20:10 Resp 26 H 09/07/17 20:10 BP 154/106 H 09/07/17 20:10 Pulse Ox 96 09/07/17 20:10 Weight: 95.254 kg - Exam General: Alert, Oriented, Cooperative, Mild Distress. No: Moderate Distress, Severe Distress, Sedated, Lethargic, Obtunded HEENT: Conjunctiva Clear, EACs Clear, EOMI, Hearing Intact, Mucosa Moist & [place] , Nares Patent, Normal Nasal Septum, Posterior Pharynx Clear, Pupils Equal, Pupils Reactive, TMs Clear Neck: Supple, Trachea Midline Lungs: Clear to Auscultation, Normal Respiratory Effort Cardiovascular: Regular Rate, Regular Rhythm, Normal S1, Normal S2 GI/Abdominal Exam: Soft, No Organomegaly, No Distention, No Abnormal Bruit, No Mass, Tender (Generalized mild to moderate tenderness), Abnormal Bowel Sounds ( Hypoactive). No: Distended, Guarding, Rigid, Rebound (Male) Exam: Deferred Rectal (Males) Exam: Deferred Back Exam: Normal Inspection, Full Range of Motion. No: CVA Tenderness (L), CVA Tenderness (R) Extremities: Normal Inspection, Normal Range of Motion, Non-Tender, No Pedal Edema, Normal Capillary Refill Skin: Warm, Dry, Intact Neurological: Cranial Nerves Intact, Strength Equal Bilateral. No: Focal Deficit Neuro Extensive - Mental Status: Alert, Oriented x3 Psychiatric: Alert, Normal Affect, Normal Mood. No: Suicidal Ideation, Homicidal Ideation, Hallucinations - Patient Data Result Diagrams: 09/07/17 20:21 09/07/17 20:21 *Q Meaningful Use (ADM) - VTE *Q VTE Criteria *Q: - Stroke *Q Stroke Criteria *Q: - AMI *Q AMI Criteria *Q: - Problem List (1) Generalized abdominal pain SNOMED Code(s): 478584486 ICD Code: R10.84 - GENERALIZED ABDOMINAL PAIN Status: Acute Priority: High Current Visit: Yes (2) Nausea and vomiting SNOMED Code(s): 40438437 ICD Code: R11.2 - NAUSEA WITH VOMITING, UNSPECIFIED Status: Acute Priority: High Current Visit: Yes (3) Diarrhea SNOMED Code(s): 17191608 ICD Code: R19.7 - DIARRHEA, UNSPECIFIED Status: Acute Priority: Medium Current Visit: Yes (4) Bipolar disorder SNOMED Code(s): 16575673 ICD Code: F31.9 - BIPOLAR DISORDER, UNSPECIFIED Status: Chronic Current Visit: Yes (5) Chronic back pain SNOMED Code(s): 328255972 ICD Code: M54.9 - DORSALGIA, UNSPECIFIED; G89.29 - OTHER CHRONIC PAIN Status: Chronic Current Visit: Yes Problem List Initiated/Reviewed/Updated: Yes Orders Last 24hrs: Medication Orders Sodium Chloride (Normal Saline) 1,000 mls @ 999 mls/hr IV .BOLUS ONE Stop: 09/07/17 23:47 Assessment/Plan Comment:: 61-year-old male with the past medical history of cholecystectomy, chronic back pain, bipolar disorder presents with generalized abdominal pain with nausea and vomiting, and diarrhea after eating frozen pizza. His laboratory data are significant for elevated WBC. He has no fever. Also suspecting gastroenteritis, viral versus bacterial. I explained to the patient that, also unlikely, I can't rule out other etiology also his CT did not report them such as appendicitis, bowel obstruction, mesenteric artery occlusion, other unknown etiology and reported her transfer to [place] where he can be evaluated by surgeon. Patient declined transfer and want to be treated here. Plan Patient received 2 L of normal saline in the emergency room -D5/half-normal saline/20 KCl at 1 50 mL per hour for 2 L -Nothing by mouth except medications and ice chips -Antiemetics as needed -NG tube if continued to have vomiting despite antiemetics -Abdomen x-ray in the morning -Ordered lactic acid -Ordered stool culture -Ordered C. difficile -Continue Seroquel for bipolar and sleep -Dilaudid, hydrocodone for pain as needed Lovenox for DVT prophylaxis He wants to be full code Plan of care was discussed with patient and he verbalized understanding agreed with the plan
[2017-09-08] MEDS: D5 1/2 NS w/ 20 mEq/L KCl 1,000 ML IV SCH (00:11)
[2017-09-08] MEDS: Acetaminophen/HYDROcodone 325-10 MG Tab PO PRN ×2 (03:19→13:58)
[2017-09-08] MEDS ORDERED: Ondansetron 4 MG/2 ML SDV IV ONE (12:45)
[2017-09-08] MEDS ORDERED: Pantoprazole 40 MG Vial IV ONE (12:45)
[2017-09-08] MEDS ORDERED: QUEtiapine 100 MG Tab PO ONE (12:45)
[2017-09-08] MEDS: Enoxaparin 40 MG/0.4 ML Syringe SUBCUT SCH (13:08)
[2017-09-08 13:27] LABS: CHLORIDE,CL 106 mmol/L (101-111); SODIUM,NA 138 mmol/L (135-145)
--- NOTE | 2017-09-08 17:40 | PCM.PN ---
- General Info Date of Service: 09/08/17 Admission Dx/Problem (Free Text): Admission Diagnosis/Problem Admission Diagnosis/Problem Abdominal pain Subjective Update: Patient stated that he is feeling much better. He still having nausea but no vomiting. He did not have bowel movement since yesterday but he had flatus passing one time this afternoon. He denies fever, chills, nausea, vomiting, chest pain, urinary symptoms, any other symptoms or concerns. - Patient Data Vitals - Most Recent: Last Vital Signs Temp 36.6 C 09/08/17 14:44 Pulse 73 09/08/17 14:44 Resp 20 09/08/17 14:44 BP 123/82 09/08/17 14:44 Pulse Ox 97 09/08/17 14:44 Weight - Most Recent: 95.254 kg I&O - Last 24 Hours: Intake & Output 09/08/17 09/08/17 09/08/17 06:59 14:59 22:59 Intake Total 250 Output Total 540 Balance -290 Lab Results Last 24 Hours: Laboratory Results - last 24 hr 09/08/17 Range/Units 00:00 Urine Color Yellow (YELLOW) Urine Appearance Clear (CLEAR) Urine pH 5.0 (5.0-9.0) Ur Specific [place] 1.015 (1.005-1.030) Urine Protein Negative (NEGATIVE) Urine Glucose (UA) Negative (NEGATIVE) Urine Ketones Negative (NEGATIVE) Urine Occult Blood Negative (NEGATIVE) Urine Nitrite Negative (NEGATIVE) Urine Bilirubin Negative (NEGATIVE) Urine Urobilinogen 0.2 (0.2-1.0) mg/dL Ur Leukocyte Esterase Negative (NEGATIVE) Urine RBC 0-5 /HPF Urine WBC 0-5 (0-5/HPF) /HPF Ur Epithelial Cells Not seen /HPF Urine Bacteria Rare (0-FEW/HPF) /HPF Med Orders - Current: Current Medications Acetaminophen (Tylenol) 650 mg PO Q4H PRN PRN Reason: Pain (Mild 1-3)/fever Hydrocodone Bitart/Acetaminophen ([place] 325-10 Mg) 1 tab PO Q4H PRN PRN Reason: Pain (moderate 4-6) Last Admin: 09/08/17 13:58 Dose: 1 tab Cyclobenzaprine HCl (Flexeril) 10 mg PO Q8H PRN PRN Reason: back pain/spasm Enoxaparin Sodium (Lovenox) 40 mg SUBCUT DAILY [facility] Last Admin: 09/08/17 13:08 Dose: Not Given Hydromorphone HCl (Dilaudid) 1 mg IVPUSH Q2H PRN PRN Reason: Pain (severe 7-10) Potassium Chloride/Dextrose/Sod Cl (D5 1/2 Ns W/ 20 Meq/L Kcl) 1,000 mls @ 150 mls/hr IV ASDIRECTED NILDA Stop: 09/09/17 06:24 Last Admin: 09/08/17 00:11 Dose: 150 mls/hr Ondansetron HCl (Zofran) 8 mg IVPUSH Q8H PRN PRN Reason: Nausea/Vomiting Last Admin: 09/08/17 13:59 Dose: 8 mg Pantoprazole Sodium (Protonix Iv) 40 mg IVPUSH Q24H [facility] Promethazine HCl (Phenergan) 12.5 mg IM Q6H PRN PRN Reason: Nausea/Vomiting Quetiapine Fumarate (Seroquel) 200 mg PO BEDTIME NILDA Zolpidem Tartrate (Ambien) 5 mg PO BEDTIME PRN PRN Reason: Sleep Last Admin: 09/08/17 00:05 Dose: 5 mg Discontinued Medications Hydromorphone HCl (Dilaudid) 1 mg IVPUSH ONETIME ONE Stop: 09/07/17 20:26 Last Admin: 09/07/17 20:32 Dose: 1 mg Hydromorphone HCl (Dilaudid) Confirm Administered Dose 1 mg .ROUTE .STK-MED ONE Stop: 09/07/17 22:12 Last Admin: 09/07/17 22:18 Dose: 1 mg Sodium Chloride (Normal Saline) 1,000 mls @ 999 mls/hr IV .BOLUS ONE Stop: 09/07/17 21:26 Last Admin: 09/07/17 20:30 Dose: 999 mls/hr Sodium Chloride (Normal Saline) 1,000 mls @ 999 mls/hr IV .BOLUS ONE Stop: 09/07/17 23:47 Last Admin: 09/07/17 23:07 Dose: 999 mls/hr Iopamidol (Isovue-300 (61%)) 100 ml IVPUSH ONETIME ONE Stop: 09/07/17 20:25 Last Admin: 09/07/17 21:38 Dose: 100 ml Metoclopramide HCl (Reglan) 10 mg IVPUSH ONETIME ONE Stop: 09/07/17 20:37 Last Admin: 09/07/17 20:42 Dose: 10 mg Ondansetron HCl (Zofran) 4 mg IV ONETIME ONE Stop: 09/07/17 20:26 Last Admin: 09/07/17 20:30 Dose: 4 mg Pantoprazole Sodium (Protonix Iv) 40 mg IVPUSH ONETIME ONE Stop: 09/07/17 20:28 Last Admin: 09/07/17 20:36 Dose: 40 mg Pantoprazole Sodium (Protonix Iv) 40 mg IVPUSH Q24H NILDA Last Admin: 09/08/17 13:26 Dose: Not Given Promethazine HCl (Phenergan) Confirm Administered Dose 25 mg .ROUTE .STK-MED ONE Stop: 09/07/17 22:12 Last Admin: 09/07/17 22:52 Dose: Not Given - Exam General: Alert, Oriented, Cooperative, No Acute Distress. No: Moderate Distress , Severe Distress, Sedated, Lethargic, Obtunded HEENT: Pupils Equal, Pupils Reactive, EOMI, Mucous Membr. Moist/Cane Beds Neck: Supple, Trachea Midline, No JVD Lungs: Clear to Auscultation, Normal Respiratory Effort Cardiovascular: Regular Rate, Regular Rhythm, No Murmurs, Irregular Rhythm GI/Abdominal Exam: Soft, No Organomegaly, No Distention, No Abnormal Bruit, No Mass, Tender (Mild to moderate generalized tenderness), Abnormal Bowel Sounds ( Hyperactive). No: Guarding, Rigid, Rebound (Male) Exam: Deferred Back Exam: Normal Inspection, Full Range of Motion. No: CVA Tenderness (L), CVA Tenderness (R) Extremities: Normal Inspection, Normal Range of Motion, Non-Tender, No Pedal Edema, Normal Capillary Refill Skin: Dry, Intact Neurological: No New Focal Deficit Psy/Mental Status: Alert, Normal Affect, Normal Mood - Problem List & Annotations (1) Generalized abdominal pain SNOMED Code(s): 021748539 Code(s): R10.84 - GENERALIZED ABDOMINAL PAIN Status: Acute Priority: High Current Visit: Yes (2) Nausea and vomiting SNOMED Code(s): 12675799 Code(s): R11.2 - NAUSEA WITH VOMITING, UNSPECIFIED Status: Acute Priority : High Current Visit: Yes (3) Diarrhea SNOMED Code(s): 67367570 Code(s): R19.7 - DIARRHEA, UNSPECIFIED Status: Acute Priority: Medium Current Visit: Yes (4) Bipolar disorder SNOMED Code(s): 29614387 Code(s): F31.9 - BIPOLAR DISORDER, UNSPECIFIED Status: Chronic Current Visit: Yes (5) Chronic back pain SNOMED Code(s): 423411834 Code(s): M54.9 - DORSALGIA, UNSPECIFIED; G89.29 - OTHER CHRONIC PAIN Status : Chronic Current Visit: Yes - Problem List Review Problem List Initiated/Reviewed/Updated: Yes - My Orders Last 24 Hours: My Active Orders 09/07/17 23:17 CULTURE STOOL [RM] Routine 09/07/17 23:18 C DIFFICILE TOXIN BY PCR [MREF] Routine 09/07/17 23:45 D5 1/2 NS w/ 20 mEq/L KCl 1,000 ml IV ASDIRECTED 09/08/17 05:11 LACTIC ACID [CHEM] AM 09/08/17 07:00 Acute Abdominal Series [Abdomen 1V Upright] [CR] Routine 09/08/17 23:00 Pantoprazole [ProTONIX IV] 40 mg IVPUSH Q24H - Plan Plan:: 61-year-old male with the past medical history of cholecystectomy, chronic back pain, bipolar disorder presents with generalized abdominal pain with nausea and vomiting, and diarrhea after eating frozen pizza. His laboratory data are significant for elevated WBC. He has no fever. Also suspecting gastroenteritis, viral versus bacterial. I explained to the patient that, also unlikely, I can't rule out other etiology also his CT did not report them such as appendicitis, bowel obstruction, mesenteric artery occlusion, other unknown etiology and reported her transfer to [place] where he can be evaluated by surgeon. Patient declined transfer and want to be treated here. Chest x-ray on 09/08/17 was done and radiologist called me and he was concern about the beginning of small bowel obstruction but also he said it could be gastroenteritis. Normal lactic acid Plan Patient received 2 L of normal saline in the emergency room -Since he is still nauseous we will place NG tube with intermittent suctioning -Continue D5/half-normal saline/20 KCl at 1 50 mL per hour -Nothing by mouth except medications and ice chips -Antiemetics as needed -Abdomen x-ray in the morning -Awaiting stool culture -Awaiting C. difficile -Continue Seroquel for bipolar and sleep -Dilaudid, hydrocodone for pain as needed Lovenox for DVT prophylaxis He wants to be full code Plan of care was discussed with patient and he verbalized understanding agreed with the plan
[2017-09-08] MEDS ORDERED: Benzonatate 100 MG Cap PO PRN (18:09)
--- NOTE | 2017-09-08 18:20 | CR ---
Clinical history: 61-year-old male with history cholecystectomy now hospitalized with abdominal pain and vomiting. Interpretation: Upright abdominal film (x2) abnormal. Dilatation several small bowel loops with differential air-fluid levels concentrated in the mid epiga strium and left upper quadrant of the abdomen suggests....* possibility of early or partial mechanica l small bowel obstruction. Clinical? Adhesions? Surgical clips gallbladder fossa right upper quadrant. Nonspecific large bowel pattern. No other foreign bodies, pathologic calcifications or free intraperi toneal air. Lung bases clear. Multilevel disc disease and chronic hypertrophic arthritic changes of the spine. (Radiopaque dye from recent CT exam defines the symmetrically distended urinary bladder)
[2017-09-08] MEDS: QUEtiapine 100 MG Tab PO SCH (22:12)
[2017-09-09] MEDS: Pantoprazole 40 MG Vial IVPUSH SCH ×2 (00:04→22:42)
[2017-09-09 06:29] LABS: CHLORIDE,CL 106 mmol/L (101-111); SODIUM,NA 138 mmol/L (135-145)
--- NOTE | 2017-09-09 09:45 | CR ---
Clinical history: 61-year-old male hospitalized for possible mechanical bowel obstruction (versus sev ere gastroenteritis). Recent NG tube placement. Interpretation:: Acute abdominal series (4 flat/upright films) confirm the presence of NG tube in the course of the esophagus but it is "kinked" at the gastroesophageal juncture and should be reposition ed. Cluster surgical brain right upper quadrant. *Normal bowel gas pattern throughout the course of the colon and no abnormal small bowel pattern iden tified on today's exam. No pathologic calcifications or abdominal soft tissue mass lesion. No free intraperitoneal air. Lung bases clear. CONCLUSION: No current evidence of mechanical bowel obstruction. (See comments regarding NG tube abov e)
[2017-09-09] MEDS: Enoxaparin 40 MG/0.4 ML Syringe SUBCUT SCH (09:46)
[2017-09-09] MEDS: HYDROmorphone 1 MG/ML Syringe IVPUSH PRN ×3 (09:53→20:33)
[2017-09-09] MEDS ORDERED: LORazepam 2 MG/ML Syringe IVPUSH PRN (10:12)
--- NOTE | 2017-09-09 10:17 | PCM.PN ---
- General Info Date of Service: 09/09/17 Admission Dx/Problem (Free Text): Admission Diagnosis/Problem Admission Diagnosis/Problem Abdominal pain Subjective Update: Patient stated that he is continuing to feeling better. His only complaint today is feeling weak and bloated in the abdomen. Abdominal pain is better but still there. He had NG tube placed yesterday and his nausea improved. No vomiting since yesterday. He is passing small amount of flatus. No bowel movement since admission. He feels hungry. Patient admitted feeling anxious and worrying because his from bowel obstruction. He denies fever, chills, nausea, vomiting, chest pain, urinary symptoms, any other symptoms or concerns. - Patient Data Vitals - Most Recent: Last Vital Signs Temp 36.2 C 09/09/17 08:33 Pulse 71 09/09/17 08:33 Resp 20 09/09/17 08:33 BP 130/83 09/09/17 08:33 Pulse Ox 96 09/09/17 08:33 Weight - Most Recent: 95.254 kg Lab Results Last 24 Hours: Laboratory Results - last 24 hr 09/08/17 09/08/17 09/08/17 Range/Units 06:30 06:30 06:30 WBC 5.2 (5.0-10.0) 10^3/uL RBC 4.58 L (4.6-6.2) 10^6/uL Hgb 14.8 D (14.0-18.0) g/dL Hct 42.4 (40.0-54.0) % MCV 92.6 D (80-100) fL MCH 32.3 (27.0-34.0) pg MCHC 34.9 (33.0-35.0) g/dL Plt Count 145 L (150-450) 10^3/uL Neut % (Auto) 79.7 H (42.2-75.2) % Lymph % (Auto) 11.3 L (20.5-50.1) % [place] % (Auto) 8.4 H (2-8) % Eos % (Auto) 0.4 L (1.0-3.0) % Baso % (Auto) 0.2 (0.0-1.0) % Sodium 138 (135-145) mmol/L Potassium 3.4 L (3.6-5.0) mmol/L Chloride 106 (101-111) mmol/L Carbon Dioxide 23.0 (21.0-31.0) mmol/L Anion Gap 12.4 BUN 22 H (7-18) mg/dL Creatinine 0.9 (0.6-1.3) mg/dL Est Cr Clr Drug Dosing 84.79 mL/min Estimated GFR (MDRD) > 60 BUN/Creatinine Ratio 24.44 Glucose 112 H (74-105) mg/dL Lactic Acid 1.3 (0.5-2.2) mmol/L Calcium 7.5 L D (8.4-10.2) mg/dl Magnesium 1.7 L (1.8-2.5) mg/dL Total Bilirubin 0.7 (0.2-1.0) mg/dL AST 28 (10-42) IU/L ALT 24 (10-60) IU/L Alkaline Phosphatase 48 (42-121) IU/L Total Protein 5.7 L (6.7-8.2) g/dl Albumin 3.3 (3.2-5.5) g/dl Globulin 2.4 Albumin/Globulin Ratio 1.38 09/09/17 09/09/17 Range/Units 05:50 05:50 WBC 2.7 L (5.0-10.0) 10^3/uL RBC 4.26 L (4.6-6.2) 10^6/uL Hgb 13.7 L (14.0-18.0) g/dL Hct 40.3 (40.0-54.0) % MCV 94.6 (80-100) fL MCH 32.2 (27.0-34.0) pg MCHC 34.0 (33.0-35.0) g/dL Plt Count 115 L (150-450) 10^3/uL Neut % (Auto) 45.4 (42.2-75.2) % Lymph % (Auto) 33.0 (20.5-50.1) % [place] % (Auto) 17.2 H (2-8) % Eos % (Auto) 4.0 H (1.0-3.0) % Baso % (Auto) 0.4 (0.0-1.0) % Sodium 138 (135-145) mmol/L Potassium 4.0 (3.6-5.0) mmol/L Chloride 106 (101-111) mmol/L Carbon Dioxide 27.0 (21.0-31.0) mmol/L Anion Gap 9.0 BUN 10 (7-18) mg/dL Creatinine 1.0 (0.6-1.3) mg/dL Est Cr Clr Drug Dosing 76.31 mL/min Estimated GFR (MDRD) > 60 BUN/Creatinine Ratio Glucose 115 H (74-105) mg/dL Lactic Acid (0.5-2.2) mmol/L Calcium 7.9 L (8.4-10.2) mg/dl Magnesium (1.8-2.5) mg/dL Total Bilirubin (0.2-1.0) mg/dL AST (10-42) IU/L ALT (10-60) IU/L Alkaline Phosphatase (42-121) IU/L Total Protein (6.7-8.2) g/dl Albumin (3.2-5.5) g/dl Globulin Albumin/Globulin Ratio Med Orders - Current: Current Medications Acetaminophen (Tylenol) 650 mg PO Q4H PRN PRN Reason: Pain (Mild 1-3)/fever Hydrocodone Bitart/Acetaminophen ([place] 325-10 Mg) 1 tab PO Q4H PRN PRN Reason: Pain (moderate 4-6) Last Admin: 09/08/17 13:58 Dose: 1 tab Benzocaine/Menthol (Cepacol Sore Throat) 1 lozenge MUCMEM Q2HR PRN PRN Reason: Sore Throat Benzonatate (Tessalon Perles) 100 mg PO TID PRN PRN Reason: Sore Throat Cyclobenzaprine HCl (Flexeril) 10 mg PO Q8H PRN PRN Reason: back pain/spasm Enoxaparin Sodium (Lovenox) 40 mg SUBCUT DAILY NILDA Last Admin: 09/09/17 09:46 Dose: 40 mg Hydromorphone HCl (Dilaudid) 1 mg IVPUSH Q2H PRN PRN Reason: Pain (severe 7-10) Last Admin: 09/09/17 09:53 Dose: 1 mg Potassium Chloride/Dextrose/Sod Cl (D5 1/2 Ns W/ 20 Meq/L Kcl) 1,000 mls @ 150 mls/hr IV ASDIRECTED NILDA Stop: 09/10/17 06:24 Last Admin: 09/08/17 00:11 Dose: 150 mls/hr Ondansetron HCl (Zofran) 8 mg IVPUSH Q8H PRN PRN Reason: Nausea/Vomiting Last Admin: 09/08/17 13:59 Dose: 8 mg Pantoprazole Sodium (Protonix Iv) 40 mg IVPUSH Q24H NILDA Last Admin: 09/09/17 00:04 Dose: Not Given Promethazine HCl (Phenergan) 12.5 mg IM Q6H PRN PRN Reason: Nausea/Vomiting Quetiapine Fumarate (Seroquel) 200 mg PO BEDTIME NILDA Last Admin: 09/08/17 22:12 Dose: Not Given Zolpidem Tartrate (Ambien) 5 mg PO BEDTIME PRN PRN Reason: Sleep Last Admin: 09/08/17 00:05 Dose: 5 mg Discontinued Medications Hydromorphone HCl (Dilaudid) 1 mg IVPUSH ONETIME ONE Stop: 09/07/17 20:26 Last Admin: 09/07/17 20:32 Dose: 1 mg Hydromorphone HCl (Dilaudid) Confirm Administered Dose 1 mg .ROUTE .STK-MED ONE Stop: 09/07/17 22:12 Last Admin: 09/07/17 22:18 Dose: 1 mg Sodium Chloride (Normal Saline) 1,000 mls @ 999 mls/hr IV .BOLUS ONE Stop: 09/07/17 21:26 Last Admin: 09/07/17 20:30 Dose: 999 mls/hr Sodium Chloride (Normal Saline) 1,000 mls @ 999 mls/hr IV .BOLUS ONE Stop: 09/07/17 23:47 Last Admin: 09/07/17 23:07 Dose: 999 mls/hr Iopamidol (Isovue-300 (61%)) 100 ml IVPUSH ONETIME ONE Stop: 09/07/17 20:25 Last Admin: 09/07/17 21:38 Dose: 100 ml Metoclopramide HCl (Reglan) 10 mg IVPUSH ONETIME ONE Stop: 09/07/17 20:37 Last Admin: 09/07/17 20:42 Dose: 10 mg Ondansetron HCl (Zofran) 4 mg IV ONETIME ONE Stop: 09/07/17 20:26 Last Admin: 09/07/17 20:30 Dose: 4 mg Pantoprazole Sodium (Protonix Iv) 40 mg IVPUSH ONETIME ONE Stop: 09/07/17 20:28 Last Admin: 09/07/17 20:36 Dose: 40 mg Pantoprazole Sodium (Protonix Iv) 40 mg IVPUSH Q24H NILDA Last Admin: 09/08/17 13:26 Dose: Not Given Promethazine HCl (Phenergan) Confirm Administered Dose 25 mg .ROUTE .STK-MED ONE Stop: 09/07/17 22:12 Last Admin: 09/07/17 22:52 Dose: Not Given - Exam General: Alert, Oriented, Cooperative, No Acute Distress, Mild Distress (Just due to feeling anxious). No: Moderate Distress, Severe Distress, Sedated, Lethargic, Obtunded HEENT: Pupils Equal, Pupils Reactive Neck: Supple, Trachea Midline, No JVD Lungs: Clear to Auscultation, Normal Respiratory Effort Cardiovascular: Regular Rate, Regular Rhythm, No Murmurs GI/Abdominal Exam: Normal Bowel Sounds, Soft, No Organomegaly, No Distention, No Abnormal Bruit, No Mass, Tender (Mild to moderate generalized tenderness). No: Distended, Guarding, Rigid, Rebound (Male) Exam: Deferred Back Exam: Normal Inspection, Full Range of Motion. No: CVA Tenderness (L), CVA Tenderness (R) Extremities: Normal Inspection, Normal Range of Motion, Non-Tender, No Pedal Edema, Normal Capillary Refill Skin: Dry, Intact Neurological: No New Focal Deficit Psy/Mental Status: Alert, Normal Affect, Normal Mood. No: Suicidal Ideation, Homicidal Ideation, Hallucinations - Problem List & Annotations (1) Generalized abdominal pain SNOMED Code(s): 294958702 Code(s): R10.84 - GENERALIZED ABDOMINAL PAIN Status: Acute Priority: High Current Visit: Yes (2) Nausea and vomiting SNOMED Code(s): 49889657 Code(s): R11.2 - NAUSEA WITH VOMITING, UNSPECIFIED Status: Acute Priority : High Current Visit: Yes (3) Diarrhea SNOMED Code(s): 80842950 Code(s): R19.7 - DIARRHEA, UNSPECIFIED Status: Acute Priority: Medium Current Visit: Yes (4) Bipolar disorder SNOMED Code(s): 96421434 Code(s): F31.9 - BIPOLAR DISORDER, UNSPECIFIED Status: Chronic Current Visit: Yes (5) Chronic back pain SNOMED Code(s): 628587704 Code(s): M54.9 - DORSALGIA, UNSPECIFIED; G89.29 - OTHER CHRONIC PAIN Status : Chronic Current Visit: Yes - Problem List Review Problem List Initiated/Reviewed/Updated: Yes - My Orders Last 24 Hours: My Active Orders 09/08/17 16:06 Nasogastric Orogastric Tube Insertion [OM.PC] Routine 09/08/17 16:09 Communication Order [RC] ROUTINE 09/08/17 18:09 Benzonatate [Tessalon Perles] 100 mg PO TID PRN 09/08/17 18:14 Benzocaine/Cetylpyrd/Menthol [Cepacol Sore Throat] 1 lozenge MUCMEM Q2HR PRN 09/08/17 23:00 Pantoprazole [ProTONIX IV] 40 mg IVPUSH Q24H 09/09/17 06:00 Small Bowel w Serial Film [CR] DAILY 09/10/17 06:00 Small Bowel w Serial Film [CR] DAILY 09/11/17 06:00 Small Bowel w Serial Film [CR] DAILY - Plan Plan:: 61-year-old male with the past medical history of cholecystectomy, chronic back pain, bipolar disorder presents with generalized abdominal pain with nausea and vomiting, and diarrhea after eating frozen pizza. His laboratory data are significant for elevated WBC. He has no fever. Also suspecting gastroenteritis, viral versus bacterial. I explained to the patient that, also unlikely, I can't rule out other etiology also his CT did not report them such as appendicitis, bowel obstruction, mesenteric artery occlusion, other unknown etiology and reported her transfer to [place] where he can be evaluated by surgeon. Patient declined transfer and want to be treated here. Abdomen x-ray on 09/08/17 was done and radiologist called me and he was concern about the beginning of small bowel obstruction but also he said it could be gastroenteritis. Normal lactic acid. Repeated abdominal x-ray on 09/09/17 reported no mechanical bowel obstruction. However reported that the NG tube is kinked in the stomach. NG tube had about 350 mL of bile output since was placed yesterday afternoon. Plan Patient is concerned about his condition because his from small bowel obstruction. At this time I told the patient that I don't not see any red flag symptoms or signs that would warrantee immediate surgical consult. However I offered to him a transfer to [facility] in [place] or [facility] in [place] today for a surgical consult. However patient stated that he does not feel that he is very ill and he would prefer to stay here. Patient received 2 L of normal saline in the emergency room -We will adjust the NG tube -Continue D5/half-normal saline/20 KCl at 175 mL per hour -Nothing by mouth except medications and ice chips -Antiemetics as needed -Awaiting stool culture and C. difficile but patient has not had a bowel movement -Continue Seroquel for bipolar and sleep -Dilaudid, hydrocodone for pain as needed -Ativan 1 mg every 8 hours as needed for anxiety. Lovenox for DVT prophylaxis He wants to be full code Plan of care was discussed with patient and he verbalized understanding agreed with the plan
[2017-09-09] MEDS: Benzocaine/Cetylpyridinium/Menthol Lozenge MUCMEM PRN (11:31)
--- NOTE | 2017-09-09 12:50 | CR ---
Clinical history: 61-year-old male NG tube placement (adjustment). Interpretation: AP supine film chest and upper abdomen confirm now satisfactory location nasogastric tube (tip appears to lie in the fundus left upper quadrant abdomen). No signs of aspiration.
[2017-09-09] MEDS: D5 1/2 NS w/ 20 mEq/L KCl 1,000 ML IV SCH ×2 (13:06→19:08)
[2017-09-09] MEDS: QUEtiapine 100 MG Tab PO SCH (20:32)
[2017-09-10] MEDS: D5 1/2 NS w/ 20 mEq/L KCl 1,000 ML IV SCH (01:45)
[2017-09-10] MEDS: HYDROmorphone 1 MG/ML Syringe IVPUSH PRN (06:20)
[2017-09-10] MEDS: Benzocaine/Cetylpyridinium/Menthol Lozenge MUCMEM PRN ×2 (06:40→11:11)
[2017-09-10 07:00] LABS: CHLORIDE,CL 103 mmol/L (101-111); SODIUM,NA 138 mmol/L (135-145)
[2017-09-10 07:51] VITALS: BP 135/89
[2017-09-10] MEDS ORDERED: D5 1/2 NS w/ 20 mEq/L KCl 1,000 ML IV SCH (09:30)
[2017-09-10] MEDS: Enoxaparin 40 MG/0.4 ML Syringe SUBCUT SCH (09:31)
--- NOTE | 2017-09-10 09:40 | PCM.DCSUM1 ---
Discharge Summary - Hospital Course Free Text/Narrative:: 61-year-old male with the past medical history of bipolar disorder, cervical spondylolysis, chronic back pain status post fusion of cervical spine, gout, migraine headache, history of cholecystectomy presents to the emergency room for having generalized abdominal pain, nausea, vomiting, one episode of diarrhea. Symptoms started on 09/07/70 at 3:30 PM 2 hours after eating frozen pepperoni pizza that he had for a long unknown time in his freezer. He had multiple liquid emesis since at that day. He had one episode of large diarrhea before he came to the emergency room. He described his abdominal pain as cramping, rated between 6 to 9 out of 10, generalized, nothing makes it worse or better, it made him sweat. Patient denies upper respiratory symptoms, chest pain, shortness breath, palpitation, cough, constipation, blood in the emesis, blood in stool, dysuria, urinary frequency, history of peptic ulcer, history of chronic GI disease, bowel obstruction, history of abdominal surgery other than cholecystectomy years ago, heart disease. Patient denies similar problem in the past. In emergency room patient received Dilaudid 1 mg twice which helped the pain. His laboratory data reported WBC 14.8 with left shift. Sodium 140. Potassium 3.9. Chloride 103. CO2 22. BNP 129. Creatinine 1.1. Glucose 155. Total bilirubin 1.2. AST 29. ALT 29. Alkaline phosphatase 66. Lipase 24. Amylase 35. CT abdomen reported no acute findings other than what is consistent with gastroenteritis. On admission exam patient looked in mild distress due to pain and nausea, abdomen exam was significant for hypoactive bowel sounds and mild to moderate generalized tenderness to deep palpation, no rebound/rigidity/ guarding. He received 1 L of normal saline, pantoprazole IV, Reglan and Zofran in admission to the Dilaudid. Patient gradually was getting better. Next day he was still nauseous and having abdominal pain. X-ray of the abdomen was done and there was concern of a beginning of mechanical small bowel obstruction according to the radiologist. NG tube was placed. For the last 30 hours the NG tube output is about 800 mL of bile-like fluid. Patient denies nausea for the last 24 hours however still complaining of abdominal pain. Now he point the pain is in the left lower quadrant and he is very concerned. He he admitted for the first time that he has been having intermittent rectal bleeding for the last 6 months. 6 weeks ago he had large amount of rectal bleeding. He has not have rectal bleeding on this admission. Patient has been nothing by mouth. He has not had bowel movement since admission. He he sporadically passes small amount of flatus. However patient states that he feels full and bloated and he should be passing more gas is and having bowel movement so he is very concerned. His according to him of small bowel obstruction. He seemed to be anxious and [facility] He wants to be transferred to [place] where he did his spine surgeries and where he has family, for further workup and more definitive diagnosis. I offered the patient repeating CAT scan today and removing the NG tube and let him try to eat and see if his bowels will start to move if abd CT does not show bowel obstruction. patient declined and wanted to be transferred to [place]. I ordered C. difficile and stool culture but he had not had bowel movement for the sample. Patient stated that usually he has bowel movement every morning and he did not have bowel movement 2 days prior to admission but had one episode of large diarrhea on day of admission. I spoke to at [place] in [place] who kindly accepted the patient. Patient was transferred in stable condition. We will continue home on maintenance fluid at 175 cc and received Dilaudid as needed for pain. - Discharge Data Discharge Date: 09/10/17 Discharge Disposition: DC/Tfer to Acute Hospital 02 Condition: Good - Discharge Diagnosis/Problem(s) (1) Generalized abdominal pain SNOMED Code(s): 307699838 ICD Code: R10.84 - GENERALIZED ABDOMINAL PAIN Status: Acute Priority: High Current Visit: Yes (2) Nausea and vomiting SNOMED Code(s): 40699119 ICD Code: R11.2 - NAUSEA WITH VOMITING, UNSPECIFIED Status: Acute Priority: High Current Visit: Yes (3) Diarrhea SNOMED Code(s): 74630982 ICD Code: R19.7 - DIARRHEA, UNSPECIFIED Status: Acute Priority: Medium Current Visit: Yes (4) Bipolar disorder SNOMED Code(s): 97002252 ICD Code: F31.9 - BIPOLAR DISORDER, UNSPECIFIED Status: Chronic Current Visit: Yes (5) Chronic back pain SNOMED Code(s): 983611673 ICD Code: M54.9 - DORSALGIA, UNSPECIFIED; G89.29 - OTHER CHRONIC PAIN Status: Chronic Current Visit: Yes - Discharge Plan Home Medications: Home Meds QUEtiapine Fumarate [Quetiapine Fumarate] 1 tab PO BEDTIME 09/07/17 [History] D5 1/2 NS w/ 20 mEq/L KCl 175 ml IV ASDIRECTED bag 09/10/17 [Rx] HYDROmorphone [Dilaudid] 1 mg IVPUSH Q2H PRN syringe 09/10/17 [Rx] Forms: ED Department Discharge - General Info Date of Service: 09/10/17 Admission Dx/Problem (Free Text: Admission Diagnosis/Problem Admission Diagnosis/Problem Abdominal pain Subjective Update: Patient denies nausea. He still feeling bloated and having abdominal pain. He seems to be anxious. Patient denies upper respiratory symptoms, chest pain, shortness breath, palpitation, cough, constipation, blood in the emesis, lateral weakness/numbness/tingling, dysuria, urinary frequency, or any other symptoms or concerns - Patient Data Vitals - Most Recent: Last Vital Signs Temp 36.9 C 09/10/17 07:50 Pulse 91 09/10/17 07:50 Resp 20 09/10/17 07:50 BP 135/89 09/10/17 07:50 Pulse Ox 97 09/10/17 07:50 Weight - Most Recent: 99.065 kg I&O - Last 24 hours: Intake & Output 09/09/17 09/10/17 09/10/17 22:59 06:59 14:59 Intake Total 1435 2375 Output Total 2175 2300 Balance -740 75 Lab Results - Last 24 hrs: Laboratory Results - last 24 hr 09/10/17 09/10/17 Range/Units 06:34 06:34 WBC 4.6 L (5.0-10.0) 10^3/uL RBC 4.53 L (4.6-6.2) 10^6/uL Hgb 14.5 (14.0-18.0) g/dL Hct 42.1 (40.0-54.0) % MCV 92.9 (80-100) fL MCH 32.0 (27.0-34.0) pg MCHC 34.4 (33.0-35.0) g/dL Plt Count 127 L (150-450) 10^3/uL Neut % (Auto) 61.3 (42.2-75.2) % Lymph % (Auto) 21.3 (20.5-50.1) % [place] % (Auto) 13.6 H (2-8) % Eos % (Auto) 3.1 H (1.0-3.0) % Baso % (Auto) 0.7 (0.0-1.0) % Sodium 138 (135-145) mmol/L Potassium 3.9 (3.6-5.0) mmol/L Chloride 103 (101-111) mmol/L Carbon Dioxide 29.0 (21.0-31.0) mmol/L Anion Gap 9.9 BUN 6 L (7-18) mg/dL Creatinine 1.0 (0.6-1.3) mg/dL Est Cr Clr Drug Dosing 76.31 mL/min Estimated GFR (MDRD) > 60 Glucose 104 (74-105) mg/dL Calcium 8.5 (8.4-10.2) mg/dl Med Orders - Current: Current Medications Acetaminophen (Tylenol) 650 mg PO Q4H PRN PRN Reason: Pain (Mild 1-3)/fever Hydrocodone Bitart/Acetaminophen ([place] 325-10 Mg) 1 tab PO Q4H PRN PRN Reason: Pain (moderate 4-6) Last Admin: 09/08/17 13:58 Dose: 1 tab Benzocaine/Menthol (Cepacol Sore Throat) 1 lozenge MUCMEM Q2HR PRN PRN Reason: Sore Throat Last Admin: 09/10/17 06:40 Dose: 1 lozenge Benzonatate (Tessalon Perles) 100 mg PO TID PRN PRN Reason: Sore Throat Cyclobenzaprine HCl (Flexeril) 10 mg PO Q8H PRN PRN Reason: back pain/spasm Enoxaparin Sodium (Lovenox) 40 mg SUBCUT DAILY NILDA Last Admin: 09/10/17 09:31 Dose: 40 mg Hydromorphone HCl (Dilaudid) 1 mg IVPUSH Q2H PRN PRN Reason: Pain (severe 7-10) Last Admin: 09/10/17 06:20 Dose: 1 mg Potassium Chloride/Dextrose/Sod Cl (D5 1/2 Ns W/ 20 Meq/L Kcl) 1,000 mls @ 175 mls/hr IV ASDIRECTED [facility] Lorazepam (Ativan) 1 mg IVPUSH Q6H PRN PRN Reason: Anxiety Last Admin: 09/09/17 15:41 Dose: 1 mg Ondansetron HCl (Zofran) 8 mg IVPUSH Q8H PRN PRN Reason: Nausea/Vomiting Last Admin: 09/08/17 13:59 Dose: 8 mg Pantoprazole Sodium (Protonix Iv) 40 mg IVPUSH Q24H [facility] Last Admin: 09/09/17 22:42 Dose: 40 mg Promethazine HCl (Phenergan) 12.5 mg IM Q6H PRN PRN Reason: Nausea/Vomiting Quetiapine Fumarate (Seroquel) 200 mg PO BEDTIME NILDA Last Admin: 09/09/17 20:32 Dose: 200 mg Zolpidem Tartrate (Ambien) 5 mg PO BEDTIME PRN PRN Reason: Sleep Last Admin: 09/08/17 00:05 Dose: 5 mg Discontinued Medications Hydromorphone HCl (Dilaudid) 1 mg IVPUSH ONETIME ONE Stop: 09/07/17 20:26 Last Admin: 09/07/17 20:32 Dose: 1 mg Hydromorphone HCl (Dilaudid) Confirm Administered Dose 1 mg .ROUTE .STK-MED ONE Stop: 09/07/17 22:12 Last Admin: 09/07/17 22:18 Dose: 1 mg Hydromorphone HCl (Dilaudid) 1 mg IVPUSH .STK-MED ONE Stop: 09/07/17 22:12 Sodium Chloride (Normal Saline) 1,000 mls @ 999 mls/hr IV .BOLUS ONE Stop: 09/07/17 21:26 Last Admin: 09/07/17 20:30 Dose: 999 mls/hr Sodium Chloride (Normal Saline) 1,000 mls @ 999 mls/hr IV .BOLUS ONE Stop: 09/07/17 23:47 Last Admin: 09/07/17 23:07 Dose: 999 mls/hr Potassium Chloride/Dextrose/Sod Cl (D5 1/2 Ns W/ 20 Meq/L Kcl) 1,000 mls @ 175 mls/hr IV ASDIRECTED NILDA Stop: 09/10/17 06:24 Last Admin: 09/10/17 01:45 Dose: 175 mls/hr Iopamidol (Isovue-300 (61%)) 100 ml IVPUSH ONETIME ONE Stop: 09/07/17 20:25 Last Admin: 09/07/17 21:38 Dose: 100 ml Metoclopramide HCl (Reglan) 10 mg IVPUSH ONETIME ONE Stop: 09/07/17 20:37 Last Admin: 09/07/17 20:42 Dose: 10 mg Ondansetron HCl (Zofran) 4 mg IV ONETIME ONE Stop: 09/07/17 20:26 Last Admin: 09/07/17 20:30 Dose: 4 mg Pantoprazole Sodium (Protonix Iv) 40 mg IVPUSH ONETIME ONE Stop: 09/07/17 20:28 Last Admin: 09/07/17 20:36 Dose: 40 mg Pantoprazole Sodium (Protonix Iv) 40 mg IVPUSH Q24H NILDA Last Admin: 09/08/17 13:26 Dose: Not Given Promethazine HCl (Phenergan) Confirm Administered Dose 25 mg .ROUTE .STK-MED ONE Stop: 09/07/17 22:12 Last Admin: 09/07/17 22:52 Dose: Not Given Promethazine HCl (Phenergan) 25 mg IM .STK-MED ONE Stop: 09/07/17 22:12 - Exam General: Reports: Alert, Oriented, Cooperative, No Acute Distress. Denies: Mild Distress, Moderate Distress, Severe Distress, Sedated, Lethargic, Obtunded HEENT: Reports: Pupils Equal, Pupils Reactive, Mucous Membr. Moist/[place] Neck: Reports: Supple, Trachea Midline, No JVD Lungs: Reports: Clear to Auscultation, Normal Respiratory Effort. Denies: Crackles, Rales, Rhonchi, Rub, Stridor, Wheezing Cardiovascular: Reports: Regular Rate, Regular Rhythm GI/Abdominal Exam: Soft, No Organomegaly, No Distention, No Abnormal Bruit, No Mass, Distended (Mildly), Tender (Mostly in the left lower quadrant). No: Guarding, Rigid, Rebound (Male) Exam: Deferred Rectal (Males) Exam: Deferred Back Exam: Reports: Normal Inspection, Full Range of Motion. Denies: CVA Tenderness (L), CVA Tenderness (R) Extremities: Normal Inspection, Normal Range of Motion, Non-Tender, No Pedal Edema, Normal Capillary Refill Skin: Reports: Warm, Dry Neurological: Reports: No New Focal Deficit Psy/Mental Status: Reports: Alert, Normal Affect, Normal Mood *Q Meaningful Use (DIS) - VTE *Q VTE Criteria *Q: - Stroke *Q Stroke Criteria *Q: - AMI *Q AMI Criteria *Q:
== END 2017-09-10 12:46 | DRG 392 ==
LOC: DL.ED 20:05 → OBSVTOIN 22:53 → DL.MS 22:53 → UNDOADMOB 22:53
PROVIDERS: ADMIT Family Medicine; ATTEND Family Medicine
DX: R10.84 Generalized abdominal pain (principal); R11.11 Vomiting without nausea; K52.9 Noninfective gastroenteritis and colitis, unspecified; G47.30 Sleep apnea, unspecified; K56.609 Unspecified intestinal obstruction, unspecified as to partial versus complete obstruction; M54.2 Cervicalgia; F32.9 Major depressive disorder, single episode, unspecified; F41.9 Anxiety disorder, unspecified; F31.9 Bipolar disorder, unspecified; G89.29 Other chronic pain; M54.9 Dorsalgia, unspecified; R19.7 Diarrhea, unspecified; Z88.0 Allergy status to penicillin
CPT/HCPCS: 36415; 74177; 80053; 82150; 83690; 85025; 96361; 96372; 96374; 96375; 96376; 99285; C9113; J1170 ×2; J2405; J2550; J2765; J7030; Q9967; 74000; 74020; 80048; 81001; 83605; 83735; 99284; A9270-GY; J1650; J2060; J3480

== ENCOUNTER 2017-11-04 05:48 | Day surgery (SDC) | payer MEDICARE ==
[2017-11-04] MEDS ORDERED: Midazolam 1 MG/ML 2 ML SDV IV ONE ×7 (05:49→07:05)
[2017-11-04] MEDS ORDERED: fentaNYL 100 MCG/2 ML SDV IV ONE ×3 (05:49→06:55)
[2017-11-04] MEDS ORDERED: Midazolam 1 MG/ML 2 ML SDV ONE (06:12)
[2017-11-04] MEDS ORDERED: fentaNYL 100 MCG/2 ML SDV ONE (06:12)
[2017-11-04] MEDS ORDERED: Dextrose 5%-0.45% NaCl 1,000 ML IV SCH (06:45)
--- NOTE | 2017-11-04 08:24 | OR ---
DATE: 11/04/2017 PROCEDURE: Total colonoscopy, cold snare polypectomy, and multiple pinch biopsies. INSTRUMENT USED: PCF-H180AL Olympus video colonoscope. PREMEDICATIONS: Fentanyl 100 mcg intravenous, Versed 4 mg intravenous. Nasal O2 cannula. The procedure was done under pulse oximetry, BP recording, and panel monitor. INDICATION: The patient with persistent diarrhea and rectal bleeding, unexplained, and not responsive to medical measures. Colonoscopic examination is done for detection of any polypoid lesions and removal, biopsies to be obtained for microscopic colitis, endoscopic hemostasis therapy if needed. DESCRIPTION OF PROCEDURE: Initial rectal exam was unremarkable. Rigid anoscopy showed moderate-sized internal hemorrhoids without bleeding from them. The colonoscope was passed with ease. In the proximal rectum, 3-mm sized benign- appearing polyp was noted, photograph was taken, cold snare polypectomy was done, the tissue was retrieved and sent for histopathology. Numerous scattered diverticula were noted in the distal left colon along with some deformity. The scope was passed with ease up to the ileocecal area, photographs were taken of the normal-appearing cecum identified by landmarks of appendiceal orifice and thin left ileocecal folds. Terminal ileum could not be intubated due to thin left ileocecal folds. No bleeding was noted from any of the visualized areas at the commencement of the examination. No stricture. No vascular ectasia. No large isolated ulcerations seen. No evidence of diffuse inflammatory bowel disease in the form of friability, contact bleeding, or ulcerations. Probing the proximal sides of folds and flexures, using adequate distention and clearing of the stool material, withdrawal of the scope was made. Multiple pinch biopsies were taken from the normal-appearing mucosa of the mid transverse colon, mid descending colon, and rectosigmoid, and sent for any histopathologic evidence for microscopic colitis. No bleeding was noted from any of the visualized areas at the completion of examination. IMPRESSION: 1. Internal hemorrhoids. 2. Diminutive rectal polyp. The patient tolerated the procedure well. [facility] /[id number]
[2017-11-04 10:03] VITALS: BP 131/85
== END 2017-11-04 09:25 | disposition home or self-care (01) ==
LOC: DL.ENDO 05:48
PROVIDERS: ATTEND Internal Medicine Gastroenterology
DX: K62.1 Rectal polyp (principal); K57.30 Diverticulosis of large intestine without perforation or abscess without bleeding; K64.8 Other hemorrhoids; E66.9 Obesity, unspecified; F41.1 Generalized anxiety disorder; N40.0 Benign prostatic hyperplasia without lower urinary tract symptoms; G89.4 Chronic pain syndrome; Z88.0 Allergy status to penicillin; Z91.030 Bee allergy status; Z88.8 Allergy status to other drugs, medicaments and biological substances; Z68.34 Body mass index [BMI] 34.0-34.9, adult
CPT/HCPCS: 45380; 45385; J2250; J3010; J7042; 88305

== ENCOUNTER 2018-01-24 14:40 | Emergency (ER) | payer MEDICARE, MEDICAID ==
[2018-01-24] MEDS ORDERED: Acetaminophen/HYDROcodone 325-10 MG Tab PO ONE (14:51)
[2018-01-24 15:11] VITALS: BP 160/109
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
[2018-01-24] MEDS ORDERED: Bacitracin Oint 1 GM U/D Packet TOP ONE (15:34)
== END 2018-01-24 16:04 | disposition home or self-care (01) ==
LOC: DL.ED 14:40
DX: S92.354A Nondisplaced fracture of fifth metatarsal bone, right foot, initial encounter for closed fracture (principal); I10 Essential (primary) hypertension; Z91.030 Bee allergy status; Z88.0 Allergy status to penicillin; Z88.5 Allergy status to narcotic agent; Z79.899 Other long term (current) drug therapy; W20.8XXA Other cause of strike by thrown, projected or falling object, initial encounter
CPT/HCPCS: 73630; 99283; A9270

== ENCOUNTER 2018-02-18 20:58 | Emergency (ER) | payer MEDICARE, MEDICAID ==
[2018-02-18 21:20] VITALS: BP 177/113
[2018-02-18] MEDS: Sodium Chloride 0.9% 10 ML Syringe FLUSH PRN (21:39)
[2018-02-18] MEDS: Sodium Chloride 0.9% 1,000 ML IV ONE (21:39)
[2018-02-18 22:01] LABS: CHLORIDE,CL 102 mmol/L (101-111); SODIUM,NA 137 mmol/L (135-145)
--- NOTE | 2018-02-18 22:21 | EDM.PDOC ---
ED HPI GENERAL MEDICAL PROBLEM - General Chief Complaint: Lower Extremity Injury/Pain Stated Complaint: [id number] SEVERE LEG PAIN AND SWELLING Time Seen by Provider: 02/18/18 22:10 Source of Information: Reports: Patient History Limitations: Reports: No Limitations - History of Present Illness INITIAL COMMENTS - FREE TEXT/NARRATIVE: states few weeks h/o bilateral leg pain and swelling, been seeing MD in [place] and has referral for "vein" specialist. states nobody can determine his problem. today has more pain in both legs and can hardly walk. states nobody has done any ultrasound for DVT. Bilateral Lower Leg Pain Score (Numeric/FACES): 8 - Related Data Allergies Allergy/AdvReac Type Severity Reaction Status Date / Time bee venom protein (honey bee) Allergy Hives Verified 02/18/18 21:17 Penicillins Allergy Hives Verified 02/18/18 21:17 MORPHINE SULFATE BEADS Allergy Rash Uncoded 02/18/18 21:17 Home Meds: Home Meds QUEtiapine Fumarate [Quetiapine Fumarate] 200 mg PO BEDTIME 09/07/17 [History] Allopurinol [Zyloprim] 100 mg PO DAILY 11/03/17 [History] Past Medical History HEENT History: Reports: Impaired Vision, Other (See Below) Other HEENT History: WEARS CORRECTIVE LENS - GLASSES Cardiovascular History: Reports: Hypertension Respiratory History: Reports: Bronchitis, Recurrent, Sleep Apnea Gastrointestinal History: Reports: Gastritis Genitourinary History: Reports: None Musculoskeletal History: Reports: Arthritis, Back Pain, Chronic, Gout, Neck Pain , Chronic, Other (See Below) Other Musculoskeletal History: Fusion of c- spine x2. And lower back ruptured disc. paresthesia. FRACTURE OF FOOT RIGHT. FRACTURE OF ELBOW Neurological History: Reports: Concussion, Headaches, Chronic Psychiatric History: Reports: Anxiety, Bipolar, Depression, Suicidal Ideation Endocrine/Metabolic History: Reports: Obesity/BMI 30+ Hematologic History: Reports: None Immunologic History: Reports: None Oncologic (Cancer) History: Reports: None Dermatologic History: Reports: None - Infectious Disease History Infectious Disease History: Reports: None - Past Surgical History Head Surgeries/Procedures: Reports: None HEENT Surgical History: Reports: Other (See Below) Other HEENT Surgeries/Procedures: Neck surgery 1996,2003,2007,2014 Cardiovascular Surgical History: Reports: None Respiratory Surgical History: Reports: None GI Surgical History: Reports: Cholecystectomy Male Surgical History: Reports: None Endocrine Surgical History: Reports: None Neurological Surgical History: Reports: C-Spine Musculoskeletal Surgical History: Reports: Other (See Below) Other Musculoskeletal Surgeries/Procedures:: Knee surgery and back surgery Oncologic Surgical History: Reports: None Dermatological Surgical History: Reports: None Social & Family History - Family History Family Medical History: Noncontributory - Tobacco Use Smoking Status *Q: Unknown Ever Smoked Second Hand Smoke Exposure: No - Caffeine Use Caffeine Use: Reports: Coffee Other Caffeine Use: OCCASIONALLY MOUTIAN DEW, DAILY - Alcohol Use Days Per Week of Alcohol Use: 7 Number of Drinks Per Day: 4 Total Drinks Per Week: 28 - Recreational Drug Use Recreational Drug Use: No - Living Situation & Occupation Living situation: Reports: with Significant Other Occupation: Disabled Review of Systems - Review of Systems Review Of Systems: ROS reveals no pertinent complaints other than HPI. ED EXAM, GENERAL - Physical Exam Exam: See Below Exam Limited By: No Limitations General Appearance: Alert, WD/WN, Anxious, Mild Distress Ears: Hearing Grossly Normal Throat/Mouth: Normal Voice, No Airway Compromise Head: Atraumatic Neck: Non-Tender, Full Range of Motion Respiratory/Chest: No Respiratory Distress Cardiovascular: Regular Rate, Rhythm GI/Abdominal: Soft, Non-Tender Extremities: No Pedal Edema, Other (tender in calf & thigh without erythema, no edema, gait limited to discomfort, NV wnl) Neurological: Alert, Oriented, Normal Cognition, No Motor/Sensory Deficits Psychiatric: Flat Affect Skin Exam: Warm, Dry, Normal Color Lymphatic: No Adenopathy Course - Vital Signs Last Recorded V/S: Last Vital Signs Temp 37.1 C 02/18/18 21:18 Pulse 85 02/18/18 21:18 Resp 20 02/18/18 21:18 BP 177/113 H 02/18/18 21:18 Pulse Ox 99 02/18/18 21:18 - Orders/Labs/Meds Orders: Active Orders 24 hr Category Date Time Status Peripheral IV Care [RC] . DIRECTED Care 02/18/18 21:30 Active Sodium Chloride 0.9% [Saline Flush] Med 02/18/18 21:30 Active 10 ml FLUSH ASDIRECTED PRN Peripheral IV Insertion Adult [OM.PC] Routine Oth 02/18/18 21:30 Ordered Medication Orders Sodium Chloride (Saline Flush) 10 ml FLUSH ASDIRECTED PRN PRN Reason: Keep Vein Open Last Admin: 02/18/18 21:39 Dose: 10 ml Labs: Laboratory Tests 02/18/18 02/18/18 02/18/18 Range/Units 21:35 21:35 21:35 WBC 7.4 (5.0-10.0) 10^3/uL RBC 4.71 (4.6-6.2) 10^6/uL Hgb 15.3 (14.0-18.0) g/dL Hct 43.4 (40.0-54.0) % MCV 92.1 (80-100) fL MCH 32.5 (27.0-34.0) pg MCHC 35.3 H (33.0-35.0) g/dL Plt Count 186 (150-450) 10^3/uL Neut % (Auto) 57.3 (42.2-75.2) % Lymph % (Auto) 27.3 (20.5-50.1) % [place] % (Auto) 11.2 H (2-8) % Eos % (Auto) 3.4 H (1.0-3.0) % Baso % (Auto) 0.8 (0.0-1.0) % D-Dimer, Quantitative 159 (0-400) ng/mL Sodium 137 (135-145) mmol/L Potassium 3.5 L (3.6-5.0) mmol/L Chloride 102 (101-111) mmol/L Carbon Dioxide 25.0 (21.0-31.0) mmol/L Anion Gap 13.5 BUN 15 (7-18) mg/dL Creatinine 0.9 (0.6-1.3) mg/dL Est Cr Clr Drug Dosing 85.10 mL/min Estimated GFR (MDRD) > 60 BUN/Creatinine Ratio 16.66 Glucose 85 (74-105) mg/dL Lactic Acid (0.5-2.2) mmol/L Calcium 8.9 (8.4-10.2) mg/dl Total Bilirubin 0.8 (0.2-1.0) mg/dL AST 29 (10-42) IU/L ALT 30 (10-60) IU/L Alkaline Phosphatase 70 (42-121) IU/L Total Protein 7.4 (6.7-8.2) g/dl Albumin 4.3 (3.2-5.5) g/dl Globulin 3.1 Albumin/Globulin Ratio 1.39 Urine Color (YELLOW) Urine Appearance (CLEAR) Urine pH (5.0-9.0) Ur Specific [place] (1.005-1.030) Urine Protein (NEGATIVE) Urine Glucose (UA) (NEGATIVE) Urine Ketones (NEGATIVE) Urine Occult Blood (NEGATIVE) Urine Nitrite (NEGATIVE) Urine Bilirubin (NEGATIVE) Urine Urobilinogen (0.2-1.0) mg/dL Ur Leukocyte Esterase (NEGATIVE) Urine RBC /HPF Urine WBC (0-5/HPF) /HPF Ur Epithelial Cells /HPF Urine Bacteria (0-FEW/HPF) /HPF Urine Opiates Screen (NEGATIVE) Ur Oxycodone Screen (NEGATIVE) Urine Methadone Screen (NEGATIVE) Ur Barbiturates Screen (NEGATIVE) U Tricyclic Antidepress (NEGATIVE) Ur Phencyclidine Scrn (NEGATIVE) Ur Amphetamine Screen (NEGATIVE) U Methamphetamines Scrn (NEGATIVE) Urine MDMA Screen (NEGATIVE) U Benzodiazepines Scrn (NEGATIVE) Urine Cocaine Screen (NEGATIVE) U Marijuana (THC) Screen (NEGATIVE) 02/18/18 02/18/18 02/18/18 Range/Units 21:35 22:41 22:41 WBC (5.0-10.0) 10^3/uL RBC (4.6-6.2) 10^6/uL Hgb (14.0-18.0) g/dL Hct (40.0-54.0) % MCV (80-100) fL MCH (27.0-34.0) pg MCHC (33.0-35.0) g/dL Plt Count (150-450) 10^3/uL Neut % (Auto) (42.2-75.2) % Lymph % (Auto) (20.5-50.1) % [place] % (Auto) (2-8) % Eos % (Auto) (1.0-3.0) % Baso % (Auto) (0.0-1.0) % D-Dimer, Quantitative (0-400) ng/mL Sodium (135-145) mmol/L Potassium (3.6-5.0) mmol/L Chloride (101-111) mmol/L Carbon Dioxide (21.0-31.0) mmol/L Anion Gap BUN (7-18) mg/dL Creatinine (0.6-1.3) mg/dL Est Cr Clr Drug Dosing mL/min Estimated GFR (MDRD) BUN/Creatinine Ratio Glucose (74-105) mg/dL Lactic Acid 1.5 (0.5-2.2) mmol/L Calcium (8.4-10.2) mg/dl Total Bilirubin (0.2-1.0) mg/dL AST (10-42) IU/L ALT (10-60) IU/L Alkaline Phosphatase (42-121) IU/L Total Protein (6.7-8.2) g/dl Albumin (3.2-5.5) g/dl Globulin Albumin/Globulin Ratio Urine Color Light yellow (YELLOW) Urine Appearance Clear (CLEAR) Urine pH 5.5 (5.0-9.0) Ur Specific [place] <= 1.005 (1.005-1.030) Urine Protein Negative (NEGATIVE) Urine Glucose (UA) Negative (NEGATIVE) Urine Ketones Negative (NEGATIVE) Urine Occult Blood Negative (NEGATIVE) Urine Nitrite Negative (NEGATIVE) Urine Bilirubin Negative (NEGATIVE) Urine Urobilinogen 0.2 (0.2-1.0) mg/dL Ur Leukocyte Esterase Negative (NEGATIVE) Urine RBC Not seen /HPF Urine WBC Not seen (0-5/HPF) /HPF Ur Epithelial Cells Rare /HPF Urine Bacteria Rare (0-FEW/HPF) /HPF Urine Opiates Screen Negative (NEGATIVE) Ur Oxycodone Screen Negative (NEGATIVE) Urine Methadone Screen Negative (NEGATIVE) Ur Barbiturates Screen Negative (NEGATIVE) U Tricyclic Antidepress Negative (NEGATIVE) Ur Phencyclidine Scrn Negative (NEGATIVE) Ur Amphetamine Screen Negative (NEGATIVE) U Methamphetamines Scrn Negative (NEGATIVE) Urine MDMA Screen Negative (NEGATIVE) U Benzodiazepines Scrn Negative (NEGATIVE) Urine Cocaine Screen Negative (NEGATIVE) U Marijuana (THC) Screen Negative (NEGATIVE) Meds: Medications Generic Name Dose Route Start Last Admin Trade Name Freq PRN Reason Stop Dose Admin Sodium Chloride 10 ml 02/18/18 21:30 02/18/18 21:39 Saline Flush FLUSH 10 ml ASDIRECTED PRN Administration Keep Vein Open Discontinued Medications Generic Name Dose Route Start Last Admin Trade Name Freq PRN Reason Stop Dose Admin Sodium Chloride 1,000 mls @ 999 mls/hr 02/18/18 21:29 02/18/18 21:39 Normal Saline IV 02/18/18 22:29 999 mls/hr .BOLUS ONE Administration Ketorolac Tromethamine 15 mg 02/18/18 22:22 02/18/18 22:46 Toradol IVPUSH 02/18/18 22:23 15 mg ONETIME ONE Administration - Re-Assessments/Exams Free Text/Narrative Re-Assessment/Exam: 02/18/18 23:06 s/p IV toradol = much better pain almost gone now. Departure - Departure Time of Disposition: 23:06 Disposition: Home, Self-Care 01 Condition: Good Clinical Impression: Muscle spasm of both lower legs - Discharge Information Instructions: Muscle Cramps and Spasms, [id number] Referrals: Myra Adrian MD [Primary Care Provider] - Forms: ED Department Discharge Additional Instructions: 1) elevate leg as much as possible next 48 hours 2) avoid excessive standing bending lifting straining 3) recheck if there is any change or concern - My Orders Last 24 Hours: My Active Orders 02/18/18 21:30 Peripheral IV Care [RC] . DIRECTED Sodium Chloride 0.9% [Saline Flush] 10 ml FLUSH ASDIRECTED PRN Peripheral IV Insertion Adult [OM.PC] Routine - Assessment/Plan Last 24 Hours: My Active Orders 02/18/18 21:30 Peripheral IV Care [RC] . DIRECTED Sodium Chloride 0.9% [Saline Flush] 10 ml FLUSH ASDIRECTED PRN Peripheral IV Insertion Adult [OM.PC] Routine
[2018-02-18] MEDS: Ketorolac 30 MG/ML SDV IVPUSH ONE (22:46)
== END 2018-02-18 23:09 | disposition home or self-care (01) ==
LOC: DL.ED 20:58
DX: M62.838 Other muscle spasm (principal); I10 Essential (primary) hypertension; E66.9 Obesity, unspecified; Z88.0 Allergy status to penicillin; Z91.030 Bee allergy status; Z88.5 Allergy status to narcotic agent; Z79.82 Long term (current) use of aspirin
CPT/HCPCS: 36415; 80053; 80305; 81001; 83605; 85025; 85379; 96361; 96374; 99283; J1885; J7030; J7050

== ENCOUNTER → 2018-12-30 | Outpatient (CLI) | payer MEDICAID, MEDICARE, OTHER | LOC: DL.MRI 09:42 | PROVIDERS: ATTEND Orthopaedic Surgery | DX: M23.91 Unspecified internal derangement of right knee (principal); R60.0 Localized edema; S76.111A Strain of right quadriceps muscle, fascia and tendon, initial encounter; M17.11 Unilateral primary osteoarthritis, right knee; Z98.890 Other specified postprocedural states; X58.XXXA Exposure to other specified factors, initial encounter | CPT/HCPCS: 73721-RT ==

== ENCOUNTER 2019-06-25 10:52 | Emergency (ER) | payer MEDICARE | END 2019-06-25 14:32 | disposition left against medical advice (07) | LOC: DL.ED 10:52 | DX: Z53.21 Procedure and treatment not carried out due to patient leaving prior to being seen by health care provider (principal) ==

== ENCOUNTER 2021-09-19 09:41 | Emergency (ER) | payer MEDICARE ==
[2021-09-19 10:04] VITALS: BP 131/87; PULSE 117
--- NOTE | 2021-09-19 10:17 | CR ---
PROCEDURE INFORMATION: Exam: XR Chest Exam date and time: 09/19/2021 9:58 AM Age: 65 years old Clinical indication: Other: Chest pain TECHNIQUE: Imaging protocol: XR of the chest. Views: 1 view. COMPARISON: No relevant prior studies available. FINDINGS: Lungs: The lungs are normally expanded and clear. Pleural spaces: Normal. Heart/Mediastinum: Normal heart and cardio-mediastinal silhouette. Vasculature: Normal pulmonary vessels and width of the vascular pedicle. Bones/joints: Intact and normally aligned. No suspicious lesion. IMPRESSION: No acute disease or suspicious finding.
[2021-09-19 10:31] LABS: ANION GAP 15.9 mEq/L (7-13)
[2021-09-19 10:50] LABS: CORONAVIRUS COVID-19 NAA NEGATIVE (NEGATIVE)
--- NOTE | 2021-09-19 11:48 | EDM.PDOC ---
ED HPI GENERAL MEDICAL PROBLEM - General Chief Complaint: Chest Pain Stated Complaint: CHEST PAIN /SHORTNESS OF BREATH Time Seen by Provider: 09/19/21 10:45 Source of Information: Reports: Patient, Provider History Limitations: Reports: No Limitations - History of Present Illness INITIAL COMMENTS - FREE TEXT/NARRATIVE: This 65 yo male patient reports to the ED with a week long history of chest pain. The patient was sent to the ED by his primary care facility due to the provider reading that he had ST elevation on his EKG. The patient reports he does have chest pain with exertion. The patient is scheduled for a stress test for 09/25/21. The patient also reports he has a headache from the sinus congestion. The patient was started on antibiotics for his sinus infection 3 day s ago. The patient reports he has been taking Tylenol and ibuprofen for his headache with little to no symptom improvement. Onset: Unknown/Unsure Duration: Week(s):, Intermittent Location: Reports: Head, Chest Quality: Reports: Ache, Dull Severity: Moderate Improves with: Reports: None Worsens with: Reports: None Context: Reports: Other Associated Symptoms: Reports: No Other Symptoms Treatments WORKDAY DIRECTOR: Reports: EKG, IV/IO Chest Pain Score (Numeric/FACES): 7 - Related Data Allergies Allergy/AdvReac Type Severity Reaction Status Date / Time bee venom protein (honey bee) Allergy Hives Verified 09/19/21 10:10 Penicillins Allergy Hives Verified 09/19/21 10:10 MORPHINE SULFATE BEADS Allergy Rash Uncoded 09/19/21 10:10 Home Meds: Home Meds QUEtiapine Fumarate [Quetiapine Fumarate] 200 mg PO BEDTIME 09/07/17 [History] allopurinoL [Zyloprim] 100 mg PO DAILY 11/03/17 [History] Past Medical History HEENT History: Reports: Impaired Vision, Other (See Below) Other HEENT History: WEARS CORRECTIVE LENS - GLASSES Cardiovascular History: Reports: Hypertension Respiratory History: Reports: Bronchitis, Recurrent, Sleep Apnea Gastrointestinal History: Reports: Gastritis Genitourinary History: Reports: None Musculoskeletal History: Reports: Arthritis, Back Pain, Chronic, Gout, Neck Pain, Chronic, Other (See Below) Other Musculoskeletal History: Fusion of c- spine x2. And lower back ruptured disc. paresthesia. FRACTURE OF FOOT RIGHT. FRACTURE OF ELBOW Neurological History: Reports: Concussion, Headaches, Chronic Psychiatric History: Reports: Anxiety, Bipolar, Depression, Suicidal Ideation Endocrine/Metabolic History: Reports: Obesity/BMI 30+ Hematologic History: Reports: None Immunologic History: Reports: None Oncologic (Cancer) History: Reports: None Dermatologic History: Reports: None - Infectious Disease History Infectious Disease History: Reports: None - Past Surgical History Head Surgeries/Procedures: Reports: None HEENT Surgical History: Reports: Other (See Below) Other HEENT Surgeries/Procedures: Neck surgery 1996,2003,2007,2014 Cardiovascular Surgical History: Reports: None Respiratory Surgical History: Reports: None GI Surgical History: Reports: Cholecystectomy Male Surgical History: Reports: None Endocrine Surgical History: Reports: None Neurological Surgical History: Reports: C-Spine Musculoskeletal Surgical History: Reports: Other (See Below) Other Musculoskeletal Surgeries/Procedures:: Knee surgery and back surgery Oncologic Surgical History: Reports: None Dermatological Surgical History: Reports: None Social & Family History - Family History Family Medical History: No Pertinent Family History - Tobacco Use Tobacco Use Status *Q: Never Tobacco User - Caffeine Use Caffeine Use: Reports: Soda Other Caffeine Use: OCCASIONALLY MOUTIAN DEW, DAILY - Alcohol Use Days Per Week of Alcohol Use: 5 Number of Drinks Per Day: 5 Total Drinks Per Week: 25 - Recreational Drug Use Recreational Drug Use: No - Living Situation & Occupation Living situation: Reports: with Significant Other Occupation: Disabled ED ROS GENERAL - Review of Systems Review Of Systems: Comprehensive ROS is negative, except as noted in HPI. ED EXAM, GENERAL - Physical Exam Exam: See Below Exam Limited By: No Limitations General Appearance: Alert, WD/WN, Anxious (due to being told he was having a heart attack by his primary care facility), Moderate Distress Eye Exam: Bilateral Eye: EOMI, Normal Inspection, PERRL Ears: Normal External Exam, Normal Canal, Hearing Grossly Normal, Normal TMs Nose: Normal Inspection, Normal Mucosa, No Blood Throat/Mouth: Normal Inspection, Normal Lips, Normal Teeth, Normal Gums, Normal Oropharynx, Normal Voice, No Airway Compromise Head: Sinus Tenderness Neck: Normal Inspection, Supple, Non-Tender, Full Range of Motion Respiratory/Chest: No Respiratory Distress, Lungs Clear, Normal Breath Sounds, No Accessory Muscle Use, Chest Non-Tender Cardiovascular: Normal Peripheral Pulses, Regular Rate, Rhythm, No Edema, No Gallop, No JVD, No Murmur, No Rub GI/Abdominal: Normal Bowel Sounds, Soft, Non-Tender, No Organomegaly, No Distention, No Abnormal Bruit, No Mass (Male) Exam: Deferred Rectal (Males) Exam: Deferred Back Exam: Normal Inspection, Full Range of Motion, NT Extremities: Normal Inspection, Normal Range of Motion, Non-Tender, Normal Capillary Refill, No Pedal Edema Neurological: Alert, Oriented, CN II-XII Intact, Normal Cognition, Normal Gait, Normal Reflexes, No Motor/Sensory Deficits Psychiatric: Normal Affect, Normal Mood Skin Exam: Warm, Dry, Intact, Normal Color, No Rash Lymphatic: No Adenopathy #1 Interpretation EKG Date: 09/19/21 Time: 09:49 Rhythm: Other (Sinus Tach) Rate (Beats/Min): 111 [place]: Normal P-Wave: Present QRS: Normal ST-T: Normal QT: Normal Comparison: NA - No Prior EKG Course - Vital Signs Last Recorded V/S: Last Vital Signs Temp 98 F 09/19/21 10:03 Pulse 117 H 09/19/21 10:03 Resp 20 09/19/21 10:03 BP 131/87 09/19/21 10:03 Pulse Ox 92 L 09/19/21 10:03 - Orders/Labs/Meds Orders: Active Orders 24 hr Category Date Time Status Ketorolac [Toradol] Med 09/19/21 12:53 Once 30 mg IVPUSH ONETIME ONE Labs: Laboratory Tests 09/19/21 09/19/21 09/19/21 Range/Units 09:55 09:55 09:55 WBC 9.1 (5.0-10.0) 10^3/uL RBC 4.80 (4.6-6.2) 10^6/uL Hgb 15.3 (14.0-18.0) g/dL Hct 45.2 (40.0-54.0) % MCV 94.2 (80-100) fL MCH 31.9 (27.0-34.0) pg MCHC 33.8 (33.0-35.0) g/dL Plt Count 229 (150-450) 10^3/uL Neut % (Auto) 86.7 H (42.2-75.2) % Lymph % (Auto) 7.4 L (20.5-50.1) % [place] % (Auto) 5.6 (2-8) % Eos % (Auto) 0.1 L (1.0-3.0) % Baso % (Auto) 0.2 (0.0-1.0) % D-Dimer, Quantitative (0-400) ng/mL Sodium 134 L (136-145) mmol/L Potassium 4.9 (3.5-5.1) mmol/L Chloride 95 L (98-107) mmol/L Carbon Dioxide 28 (21-32) mmol/L Anion Gap 15.9 H (7-13) mEq/L BUN 52 H (7-18) mg/dL Creatinine 1.80 H (0.70-1.30) mg/dL Est Cr Clr Drug Dosing 40.91 mL/min Estimated GFR (MDRD) 38 BUN/Creatinine Ratio 28.9 (No establ ref range) Glucose 211 H (70-99) mg/dL Lactic Acid 1.90 H (0.56-1.39) mmol/L Calcium 10.4 H (8.5-10.1) mg/dL Total Bilirubin 0.4 (0.2-1.0) mg/dL AST 20 (15-37) U/L ALT 55 (16-63) U/L Alkaline Phosphatase 98 (46-116) U/L Troponin I High Sens 6 (<=76) pg/mL Total Protein 8.0 (6.4-8.2) g/dL Albumin 3.8 (3.4-5.0) g/dL Globulin 4.2 Albumin/Globulin Ratio 0.9 Influenza Type A RNA (NEGATIVE) Influenza Type B RNA (NEGATIVE) SARS-CoV-2 RNA (MANUEL) (NEGATIVE) 09/19/21 09/19/21 Range/Units 09:55 10:03 WBC (5.0-10.0) 10^3/uL RBC (4.6-6.2) 10^6/uL Hgb (14.0-18.0) g/dL Hct (40.0-54.0) % MCV (80-100) fL MCH (27.0-34.0) pg MCHC (33.0-35.0) g/dL Plt Count (150-450) 10^3/uL Neut % (Auto) (42.2-75.2) % Lymph % (Auto) (20.5-50.1) % [place] % (Auto) (2-8) % Eos % (Auto) (1.0-3.0) % Baso % (Auto) (0.0-1.0) % D-Dimer, Quantitative 907 H (0-400) ng/mL Sodium (136-145) mmol/L Potassium (3.5-5.1) mmol/L Chloride (98-107) mmol/L Carbon Dioxide (21-32) mmol/L Anion Gap (7-13) mEq/L BUN (7-18) mg/dL Creatinine (0.70-1.30) mg/dL Est Cr Clr Drug Dosing mL/min Estimated GFR (MDRD) BUN/Creatinine Ratio (No establ ref range) Glucose (70-99) mg/dL Lactic Acid (0.56-1.39) mmol/L Calcium (8.5-10.1) mg/dL Total Bilirubin (0.2-1.0) mg/dL AST (15-37) U/L ALT (16-63) U/L Alkaline Phosphatase (46-116) U/L Troponin I High Sens (<=76) pg/mL Total Protein (6.4-8.2) g/dL Albumin (3.4-5.0) g/dL Globulin Albumin/Globulin Ratio Influenza Type A RNA Negative (NEGATIVE) Influenza Type B RNA Negative (NEGATIVE) SARS-CoV-2 RNA (MANUEL) Negative (NEGATIVE) Meds: Medications Discontinued Medications Generic Name Dose Route Start Last Admin Trade Name Freq PRN Reason Stop Dose Admin Iopamidol 100 ml 09/19/21 11:53 09/19/21 12:11 Iopamidol 755 Mg/Ml 100 Ml Bottle IVPUSH 09/19/21 11:54 80 ml ONETIME ONE Administration - Re-Assessments/Exams Free Text/Narrative Re-Assessment/Exam: 09/19/21 12:57 The patient was advised of the results of his CT (looking for a blood clot in his lungs). Unfortunately, there was no contrast in the patient's chest to rule out a PE. The patient was offered to be admitted to the hospital for continued evaluation and further management, but the patient would prefer to go home. Departure - Departure Time of Disposition: 12:59 Disposition: Home, Self-Care 01 Condition: Fair Clinical Impression: Nonspecific chest pain, Elevated d-dimer Instructions: Nonspecific Chest Pain, Adult, [id number] Forms: ED Department Discharge Care Plan Goals: The patient was advised of the lab results, x-ray results and EKG results during the visit. The patient was also advised of the inability to rule out a PE due to the contrast medium not getting into his chest during the scan. With the patient elevated kidney function, the patient could not have the test repeated during this visit. The patient was given the opportunity to be admitted to our hospital for continued evaluation and management, but the patient would prefer to go home. The patient was encouraged to return to the ED if he had more chest pain or increased symptoms. Sepsis Event Note (ED) - Focused Exam Vital Signs: Vital Signs Temp Pulse Resp BP Pulse Ox 09/19/21 10:03 98 F 117 H 20 131/87 92 L - My Orders Last 24 Hours: My Active Orders 09/19/21 12:53 Ketorolac [Toradol] 30 mg IVPUSH ONETIME ONE - Assessment/Plan Last 24 Hours: My Active Orders 09/19/21 12:53 Ketorolac [Toradol] 30 mg IVPUSH ONETIME ONE
[2021-09-19] MEDS ORDERED: Iopamidol 755 Mg/ML 100 ML Bottle IVPUSH ONE (11:53)
--- NOTE | 2021-09-19 12:37 | CT ---
PROCEDURE INFORMATION: Exam: CT Chest With Contrast; Diagnostic Exam date and time: 09/19/2021 12:09 PM Age: 65 years old Clinical indication: Pain; Chest pressure; Additional info: Chest pain (elevated d-dimer), R/O pe TECHNIQUE: Imaging protocol: Diagnostic computed tomography of the chest with contrast. Radiation optimization: All CT scans at this facility use at least one of these dose optimization techniques: automated exposure control; mA and/or kV adjustment per patient size (includes targeted exams where dose is matched to clinical indication); or iterative reconstruction. Contrast material: ISOVUE 370; Contrast volume: 80 ml; Contrast route: INTRAVENOUS (IV); COMPARISON: CR Chest 1V Frontal 09/19/2021 9:58 AM FINDINGS: Lungs: No consolidations. 2 mm left upper lobe nodule image 4/55. 2 mm middle lobe nodule image 4/49. Pleural spaces: Unremarkable. No pneumothorax. No pleural effusion. Heart: Unremarkable. No cardiomegaly. No pericardial effusion. Pulmonary arteries: Pulmonary embolism cannot be evaluated. Contrast within the main pulmonary artery is only 90. Consider repeat examination as a pulmonary embolism study if pulmonary embolism is suspected. Aorta: Descending aorta is aneurysmal measuring 40 x 41 mm. Contrast within the aorta is lobe with no obvious evidence of dissection. Lymph nodes: Unremarkable. No enlarged lymph nodes. Gallbladder and bile ducts: Cholecystectomy clips are seen. Bones/joints: Anterior dorsal spine spurring. Soft tissues: Unremarkable. IMPRESSION: 1. Ascending aortic aneurysm without obvious dissection given limited contrast in aorta, Hounsfield units are 122. 2. Nondiagnostic study for pulmonary emboli as per the clinical indication. Consider CT angiography of pulmonary embolism is suspected. 3. Small nodules bilaterally. For patients at low risk (minimal or absent history of smoking and of other known risk factors), no routine follow-up is indicated. For patients at high risk (history of smoking or of other known risk factors), consider optional CT Chest at 12 months. (Reference: Richard) REFERENCES: Richard Leal et al. Guidelines for Management of Incidental Pulmonary Nodules Detected on CT Images: From the Fleischner Society 2017. Radiology. 2017;284(1):228-243.
[2021-09-19] MEDS ORDERED: Ketorolac 30 MG/ML SDV IVPUSH ONE (12:53)
== END 2021-09-19 13:10 | disposition home or self-care (01) ==
LOC: DL.ED 09:41
DX: R07.9 Chest pain, unspecified (principal); R79.89 Other specified abnormal findings of blood chemistry; I10 Essential (primary) hypertension; M10.9 Gout, unspecified; E66.9 Obesity, unspecified; Z68.35 Body mass index [BMI] 35.0-35.9, adult; Z91.030 Bee allergy status; Z88.0 Allergy status to penicillin; Z88.5 Allergy status to narcotic agent; Z79.899 Other long term (current) drug therapy; Z20.822 Contact with and (suspected) exposure to COVID-19
CPT/HCPCS: 0240U; 36415; 71045; 71260; 80053; 83605; 84484; 85025; 85379; 93005; 96374; 99285; J1885; Q9967

== ENCOUNTER 2022-05-03 11:27 | Emergency (ER) | payer MEDICARE, MEDICAID | END 2022-05-03 12:07 | disposition left against medical advice (07) | LOC: DL.ED 11:27 | DX: Z53.21 Procedure and treatment not carried out due to patient leaving prior to being seen by health care provider (principal) ==

== ENCOUNTER 2023-01-08 09:00 | Emergency (ER) | payer MEDICAID, MEDICARE ==
[~2023-01-08 09:00] MED LIST: HYDROmorphone 1 MG/ML Syringe IVPUSH ONE; Ondansetron 4 MG/2 ML SDV IVPUSH ONE
[2023-01-08 09:04] VITALS: BP 187/108; PULSE 104
[2023-01-08] MEDS ORDERED: Iopamidol 612 MG/ML 100 ML Bottle IVPUSH ONE (09:04)
[2023-01-08 09:25] LABS: ANION GAP 13.9 mEq/L (7-13)
== END 2023-01-08 10:52 | disposition home or self-care (01) ==
LOC: DL.ED 09:00
DX: S32.028A Other fracture of second lumbar vertebra, initial encounter for closed fracture (principal); S32.038A Other fracture of third lumbar vertebra, initial encounter for closed fracture; I10 Essential (primary) hypertension; M10.9 Gout, unspecified; E66.9 Obesity, unspecified; Z68.35 Body mass index [BMI] 35.0-35.9, adult; Z91.030 Bee allergy status; Z88.0 Allergy status to penicillin; Z88.5 Allergy status to narcotic agent; Z79.899 Other long term (current) drug therapy; W18.09XA Striking against other object with subsequent fall, initial encounter
CPT/HCPCS: 36415; 71260; 72128; 72131; 74177; 80053; 85025; 93005; 93010; 96374; 96375; 99284; 99285; J1170; J2405; Q9967

== ENCOUNTER 2023-05-22 10:25 | Emergency (ER) | payer MEDICAID, MEDICARE ==
[2023-05-22 10:41] VITALS: BP 135/103; PULSE 99
[2023-05-22] MEDS ORDERED: Sodium Chloride 0.9% 10 ML Syringe FLUSH PRN (11:03)
[2023-05-22] MEDS ORDERED: Sodium Chloride 0.9% 1,000 ML IV ONE (11:04)
[2023-05-22 11:24] LABS: BASOPHILS PERCENT AUTO 0.3 % (0.0-1.0); EOSINOPHILS PERCENT AUTO 0.7 % (1.0-3.0); HEMOGLOBIN 15.8 g/dL (14.0-18.0); LYMPHOCYTES PERCENT AUTO 13.4 % (20.5-50.1); MEAN CORPUSCULAR HGB CONC 34.3 g/dL (33.0-35.0); MONOCYTES PERCENT AUTO 7.4 % (2-8); NEUTROPHILS PERCENT AUTO 78.2 % (42.2-75.2); PLATELET COUNT,PLT 181 10^3/uL (150-450); RED BLOOD CELL COUNT 4.79 10^6/uL (4.6-6.2); WHITE BLOOD CELL COUNT,WBC 5.8 10^3/uL (5.0-10.0)
[2023-05-22 11:45] LABS: A/G RATIO 0.9; ALANINE AMINOTRANSFERASE,ALT 105 U/L (16-63); ALBUMIN 4.1 g/dL (3.4-5.0); ALKALINE PHOSPHATASE 168 U/L (46-116); ANION GAP 13.8 mEq/L (7-13); ASPARTATE AMNIOTRANSFERASE,AST 56 U/L (15-37); BILIRUBIN TOTAL 0.6 mg/dL (0.2-1.0); BLOOD UREA NITROGEN,BUN 31 mg/dL (7-18); BUN/CREATININE RATIO 25.2 (No establ ref range); CALCIUM 10.2 mg/dL (8.5-10.1); CARBON DIOXIDE,CO2 29 mmol/L (21-32); CHLORIDE,CL 99 mmol/L (98-107); CREATININE 1.23 mg/dL (0.70-1.30); EST CRCL DRUG DOSING (CG) 56.38 mL/min; ESTIMATED GFR 64 mL/min (>=60); GLUCOSE RANDOM 129 mg/dL (70-99); POTASSIUM,K 4.8 mmol/L (3.5-5.1); PROTEIN TOTAL,TP 8.6 g/dL (6.4-8.2); SODIUM,NA 137 mmol/L (136-145)
[2023-05-22 11:46] LABS: ETHANOL BLOOD MEDICAL < 3 mg/dL (0)
[2023-05-22 12:06] LABS: APPEARANCE,URINE CLEAR (CLEAR); BILIRUBIN,URINE NEGATIVE (NEGATIVE); COLOR,URINE YELLOW (YELLOW); GLUCOSE,URINE NEGATIVE (NEGATIVE); KETONES,URINE 15 (NEGATIVE); LEUKOCYTE ESTERASE,URINE NEGATIVE (NEGATIVE); NITRITE,URINE NEGATIVE (NEGATIVE); OCCULT BLOOD,URINE NEGATIVE (NEGATIVE); PH,URINE 5.5 (5.0-9.0); PROTEIN,URINE 30 (NEGATIVE); UROBILINOGEN,URINE 0.2 mg/dL (0.2-1.0)
[2023-05-22 12:14] LABS: AMORPHOUS SEDIMENT,URINE MODERATE /HPF (NOT SEEN); BACTERIA,URINE MODERATE /HPF (0-FEW/HPF); EPITHELIAL CELLS,URINE FEW /HPF (NOT SEEN); METHAMPHETAMINES,URINE NEGATIVE (NEGATIVE); MUCUS,URINE MODERATE /LPF (NOT SEEN); RBC,URINE 0-5 /HPF (0-5); WBC,URINE 0-5 /HPF (0-5/HPF)
[2023-05-22 12:15] LABS: AMPHETAMINES,URINE NEGATIVE (NEGATIVE); BARBITURATES,URINE NEGATIVE (NEGATIVE); BENZODIAZEPINE,URINE NEGATIVE (NEGATIVE); MDMA (ECSTASY), URINE NEGATIVE (NEGATIVE); METHADONE,URINE NEGATIVE (NEGATIVE); OPIATES,URINE NEGATIVE (NEGATIVE); OXYCODONE,URINE POSITIVE (NEGATIVE); PHENCYCLIDINE,URINE NEGATIVE (NEGATIVE); TCA,URINE POSITIVE (NEGATIVE)
== END 2023-05-22 13:06 | disposition home or self-care (01) ==
LOC: DL.ED 10:25
DX: E86.0 Dehydration (principal); R40.4 Transient alteration of awareness; J06.9 Acute upper respiratory infection, unspecified; I10 Essential (primary) hypertension; E66.9 Obesity, unspecified; Z68.33 Body mass index [BMI] 33.0-33.9, adult; Z20.822 Contact with and (suspected) exposure to COVID-19; Z86.16 Personal history of COVID-19; Z88.0 Allergy status to penicillin; Z88.5 Allergy status to narcotic agent; Z91.030 Bee allergy status; Z79.899 Other long term (current) drug therapy
CPT/HCPCS: 36415; 70450; 71046; 80053; 80305; 80307; 81001; 82140; 83605; 84145; 85025; 87040; 96360; 99285; J7030; U0002; J3490

== ENCOUNTER 2023-09-24 10:53 | Observation (INO) | payer MEDICAID, MEDICARE ==
[2023-09-24] MEDS ORDERED: Sodium Chloride 0.9% 10 ML Syringe FLUSH PRN (11:12)
[2023-09-24] MEDS ORDERED: Sodium Chloride 0.9% 1,000 ML IV ONE (11:13)
[2023-09-24] MEDS ORDERED: Octreotide 100 MCG/ML SDV IVPUSH ONE (11:14)
[2023-09-24] MEDS ORDERED: Pantoprazole 40 MG Vial IVPUSH ONE (11:14)
[2023-09-24 11:25] LABS: BASOPHILS PERCENT AUTO 0.4 % (0.0-1.0); EOSINOPHILS PERCENT AUTO 0.8 % (1.0-3.0); HEMATOCRIT 39.4 % (40.0-54.0); HEMOGLOBIN 14.1 g/dL (14.0-18.0); LYMPHOCYTES PERCENT AUTO 16.5 % (20.5-50.1); MEAN CORPUSCULAR HEMOGLOBIN 32.8 pg (27.0-34.0); MEAN CORPUSCULAR HGB CONC 35.8 g/dL (33.0-35.0); MEAN CORPUSCULAR VOLUME 91.6 fL (80-100); MONOCYTES PERCENT AUTO 7.2 % (2-8); NEUTROPHILS PERCENT AUTO 75.1 % (42.2-75.2); PLATELET COUNT,PLT 216 10^3/uL (150-450); WHITE BLOOD CELL COUNT,WBC 10.6 10^3/uL (5.0-10.0)
[2023-09-24 11:40] LABS: INR 0.9 (0.9-1.2); PROTHROMBIN TIME 9.5 SEC (9.0-12.0); PTT,PARTIAL THROMBOPLSTIN TIME 24.1 SEC (22.0-34.0)
[2023-09-24] MEDS: Pantoprazole 40 MG in Sodium Chloride 0.9% 100 ML IV SCH ×3 (11:42→21:13)
[2023-09-24 11:45] LABS: A/G RATIO 1.1; ALANINE AMINOTRANSFERASE,ALT 67 U/L (16-63); ALBUMIN 3.5 g/dL (3.4-5.0); ALKALINE PHOSPHATASE 87 U/L (46-116); AMYLASE 47 U/L (25-115); ANION GAP 13.9 mEq/L (7-13); ASPARTATE AMNIOTRANSFERASE,AST 16 U/L (15-37); BILIRUBIN TOTAL 0.2 mg/dL (0.2-1.0); BLOOD UREA NITROGEN,BUN 31 mg/dL (7-18); CALCIUM 9.1 mg/dL (8.5-10.1); CARBON DIOXIDE,CO2 25 mmol/L (21-32); CHLORIDE,CL 101 mmol/L (98-107); CREATININE 0.97 mg/dL (0.70-1.30); EST CRCL DRUG DOSING (CG) 71.49 mL/min; GLUCOSE RANDOM 126 mg/dL (70-99); LIPASE 63 U/L (16-77); POTASSIUM,K 3.9 mmol/L (3.5-5.1); PROTEIN TOTAL,TP 6.8 g/dL (6.4-8.2); SODIUM,NA 136 mmol/L (136-145)
[2023-09-24 11:49] LABS: LACTIC ACID 1.1 mmol/L (0.4-2.0)
[2023-09-24 11:51] LABS: ESTIMATED GFR 86 mL/min (>=60)
[2023-09-24 11:52] LABS: C-REACTIVE PROTEIN < 0.50 ng/dL (<=0.50)
[2023-09-24] MEDS: Octreotide 100 MCG in Sodium Chloride 0.9% 99 ML IV SCH ×2 (12:07→20:44)
[2023-09-24 15:57] LABS: HEMATOCRIT 35.2 % (40.0-54.0); HEMOGLOBIN 12.4 g/dL (14.0-18.0); MEAN CORPUSCULAR HEMOGLOBIN 32.6 pg (27.0-34.0); MEAN CORPUSCULAR HGB CONC 35.2 g/dL (33.0-35.0); MEAN CORPUSCULAR VOLUME 92.6 fL (80-100); RED BLOOD CELL COUNT 3.8 10^6/uL (4.6-6.2); WHITE BLOOD CELL COUNT,WBC 8.9 10^3/uL (5.0-10.0)
[2023-09-24] MEDS: Acetaminophen 325 MG Tab PO PRN (16:41)
[2023-09-24] MEDS: Sodium Chloride 0.9% 1,000 ML IV SCH (16:43)
[2023-09-24] MEDS ORDERED: QUEtiapine 100 MG Tab PO SCH (21:00)
[2023-09-25] MEDS: Pantoprazole 40 MG in Sodium Chloride 0.9% 100 ML IV SCH ×2 (02:06→06:41)
[2023-09-25 04:46] LABS: HEMATOCRIT 30.5 % (40.0-54.0); HEMOGLOBIN 10.7 g/dL (14.0-18.0); MEAN CORPUSCULAR HEMOGLOBIN 32.6 pg (27.0-34.0); MEAN CORPUSCULAR HGB CONC 35.1 g/dL (33.0-35.0); RED BLOOD CELL COUNT 3.28 10^6/uL (4.6-6.2); WHITE BLOOD CELL COUNT,WBC 6.4 10^3/uL (5.0-10.0)
[2023-09-25] MEDS: Sodium Chloride 0.9% 1,000 ML IV SCH (04:49)
[2023-09-25] MEDS: Acetaminophen 325 MG Tab PO PRN ×2 (05:00→12:43)
[2023-09-25] MEDS: Octreotide 100 MCG in Sodium Chloride 0.9% 99 ML IV SCH (06:37)
[2023-09-25 10:24] LABS: HEMATOCRIT 30.4 % (40.0-54.0); HEMOGLOBIN 10.6 g/dL (14.0-18.0); MEAN CORPUSCULAR HEMOGLOBIN 32.8 pg (27.0-34.0); MEAN CORPUSCULAR HGB CONC 34.9 g/dL (33.0-35.0); MEAN CORPUSCULAR VOLUME 94.1 fL (80-100); RED BLOOD CELL COUNT 3.23 10^6/uL (4.6-6.2); WHITE BLOOD CELL COUNT,WBC 7.1 10^3/uL (5.0-10.0)
[2023-09-25] MEDS ORDERED: Pantoprazole 80 MG in Sodium Chloride 0.9% 100 ML IV ONE (10:54)
[2023-09-25 11:47] VITALS: BP 145/87; PULSE 83
[2023-09-25] MEDS ORDERED: Ondansetron 8 MG in Sodium Chloride 0.9% 50 ML IV ONE (12:25)
[2023-09-25] MEDS ORDERED: Ondansetron 4 MG/2 ML SDV IV ONE (12:45)
== END 2023-09-25 13:10 ==
LOC: DL.ED 10:53 → DL.MS 13:34 → INTOOBSV 13:34
PROVIDERS: ADMIT Internal Medicine; ATTEND Internal Medicine
DX: K27.4 Chronic or unspecified peptic ulcer, site unspecified, with hemorrhage (principal); I10 Essential (primary) hypertension; F31.9 Bipolar disorder, unspecified; E66.9 Obesity, unspecified; Z68.35 Body mass index [BMI] 35.0-35.9, adult; Z79.899 Other long term (current) drug therapy; Z91.030 Bee allergy status
CPT/HCPCS: 36415; 80053; 82150; 82272; 83605; 83690; 84145; 85025; 85027; 85610; 85730; 86140; 86900; 86901; 99223; 99239; 99285; A9270-GY; C9113; J2354-JA; J2405; J3490; J7030

== ENCOUNTER 2024-03-31 10:08 | Emergency (ER) | payer MEDICARE ==
[2024-03-31] MEDS: Aspirin 81 MG Tab.Chew PO ONE (10:25)
[2024-03-31 10:26] LABS: BASOPHILS PERCENT AUTO 0.4 % (0.0-1.0); EOSINOPHILS PERCENT AUTO 0.8 % (1.0-3.0); HEMATOCRIT 44.7 % (40.0-54.0); HEMOGLOBIN 15.4 g/dL (14.0-18.0); LYMPHOCYTES PERCENT AUTO 9.4 % (20.5-50.1); MEAN CORPUSCULAR HEMOGLOBIN 32.5 pg (27.0-34.0); MEAN CORPUSCULAR HGB CONC 34.5 g/dL (33.0-35.0); MEAN CORPUSCULAR VOLUME 94.3 fL (80-100); MONOCYTES PERCENT AUTO 8.3 % (2-8); NEUTROPHILS PERCENT AUTO 81.1 % (42.2-75.2); PLATELET COUNT,PLT 212 10^3/uL (150-450); RED BLOOD CELL COUNT 4.74 10^6/uL (4.6-6.2); WHITE BLOOD CELL COUNT,WBC 12.9 10^3/uL (5.0-10.0)
[2024-03-31 10:34] VITALS: BP 136/82; PULSE 120
[2024-03-31 10:42] LABS: INR 0.9 (0.9-1.2); PROTHROMBIN TIME 9.7 SEC (9.0-12.0)
[2024-03-31 10:50] LABS: ALANINE AMINOTRANSFERASE,ALT 36 U/L (16-63); ALBUMIN 3.7 g/dL (3.4-5.0); ALKALINE PHOSPHATASE 75 U/L (46-116); ASPARTATE AMNIOTRANSFERASE,AST 13 U/L (15-37); BILIRUBIN TOTAL 0.7 mg/dL (0.2-1.0); BLOOD UREA NITROGEN,BUN 24 mg/dL (7-18); BUN/CREATININE RATIO 20.2 (No establ ref range); CALCIUM 9.6 mg/dL (8.5-10.1); CARBON DIOXIDE,CO2 24 mmol/L (21-32); CHLORIDE,CL 99 mmol/L (98-107); CREATINE KINASE,CK 86 U/L (39-308); CREATININE 1.19 mg/dL (0.70-1.30); EST CRCL DRUG DOSING (CG) 57.48 mL/min; GLUCOSE RANDOM 143 mg/dL (70-99); LIPASE 34 U/L (16-77); MAGNESIUM 1.7 mg/dL (1.8-2.4); PROTEIN TOTAL,TP 7.3 g/dL (6.4-8.2); SODIUM,NA 135 mmol/L (136-145)
[2024-03-31] MEDS: Sodium Chloride 0.9% 1,000 ML IV ONE ×3 (10:55→13:24)
[2024-03-31 11:06] LABS: ESTIMATED GFR 67 mL/min (>=60); ETHANOL BLOOD MEDICAL < 3 mg/dL (0)
[2024-03-31 11:07] LABS: LACTIC ACID 2.3 mmol/L (0.4-2.0)
[2024-03-31] MEDS: Magnesium Sulfate/Water 2 GM in Premix Bag 1 BAG IV ONE (11:13)
[2024-03-31] MEDS: cefTRIAXone 1 GM Vial IVPUSH ONE (11:17)
[2024-03-31] MEDS: Acetaminophen 500 MG Tab PO ONE (11:23)
[2024-03-31] MEDS: Iopamidol 755 Mg/ML 100 ML Bottle IVPUSH ONE ×2 (11:39→12:43)
== END 2024-03-31 14:09 ==
LOC: DL.ED 10:08
DX: A41.9 Sepsis, unspecified organism (principal); E86.0 Dehydration; R07.2 Precordial pain; E83.42 Hypomagnesemia; R79.89 Other specified abnormal findings of blood chemistry; I10 Essential (primary) hypertension; Z91.030 Bee allergy status; Z88.5 Allergy status to narcotic agent; Z79.899 Other long term (current) drug therapy; Z86.16 Personal history of COVID-19; Z90.49 Acquired absence of other specified parts of digestive tract
CPT/HCPCS: 36415; 70450; 71045; 71275; 80053; 80307; 82550; 83605; 83690; 83735; 84484; 85025; 85379; 85610; 87040; 93005; 93010; 96361; 96365; 96366; 96375; 99285; A9270; J0696; J3475; J7030; Q9967

== ENCOUNTER 2024-06-18 12:16 | Emergency (ER) | payer MEDICARE ==
[2024-06-18] MEDS ORDERED: Sodium Chloride 0.9% 10 ML Syringe FLUSH PRN (12:26)
[2024-06-18] MEDS: Aspirin 81 MG Tab.Chew PO ONE (12:40)
[2024-06-18 12:51] VITALS: BP 166/104; PULSE 96
[2024-06-18 12:51] LABS: BASOPHILS PERCENT AUTO 0.6 % (0.0-1.0); EOSINOPHILS PERCENT AUTO 1.7 % (1.0-3.0); HEMOGLOBIN 15.7 g/dL (14.0-18.0); MEAN CORPUSCULAR HGB CONC 35.7 g/dL (33.0-35.0); MEAN CORPUSCULAR VOLUME 92.4 fL (80-100); MONOCYTES PERCENT AUTO 9.1 % (2-8); NEUTROPHILS PERCENT AUTO 71.6 % (42.2-75.2); PLATELET COUNT,PLT 193 10^3/uL (150-450); RED BLOOD CELL COUNT 4.76 10^6/uL (4.6-6.2); WHITE BLOOD CELL COUNT,WBC 6.5 10^3/uL (5.0-10.0)
[2024-06-18 13:09] LABS: PROTHROMBIN TIME 9.9 SEC (9.0-12.0); PTT,PARTIAL THROMBOPLSTIN TIME 23.8 SEC (22.0-34.0)
[2024-06-18 13:35] LABS: ALBUMIN 3.5 g/dL (3.4-5.0); ANION GAP 13.7 mEq/L (7-13); BILIRUBIN TOTAL 0.4 mg/dL (0.2-1.0); BUN/CREATININE RATIO 20.8 (No establ ref range); CALCIUM 9.1 mg/dL (8.5-10.1); CREATININE 0.96 mg/dL (0.70-1.30); EST CRCL DRUG DOSING (CG) 71.25 mL/min; MAGNESIUM 1.9 mg/dL (1.8-2.4); POTASSIUM,K 3.7 mmol/L (3.5-5.1)
[2024-06-18] MEDS: Sodium Chloride 0.9% 1,000 ML IV ONE (13:44)
== END 2024-06-18 15:11 | disposition home or self-care (01) ==
LOC: DL.ED 12:16
DX: J10.1 Influenza due to other identified influenza virus with other respiratory manifestations (principal); I10 Essential (primary) hypertension; E66.9 Obesity, unspecified; Z86.16 Personal history of COVID-19; Z90.49 Acquired absence of other specified parts of digestive tract; Z79.899 Other long term (current) drug therapy; Z79.1 Long term (current) use of non-steroidal anti-inflammatories (NSAID); Z88.5 Allergy status to narcotic agent; Z91.030 Bee allergy status; Z68.35 Body mass index [BMI] 35.0-35.9, adult
CPT/HCPCS: 36415; 71045; 80053; 83735; 84484; 85025; 85610; 85730; 87804; 93005; 93010; 99284; A9270; J7030; U0002

== ENCOUNTER 2025-06-18 19:59 | Emergency (ER) | payer MEDICARE, MEDICAID ==
[2025-06-18] MEDS: Ketorolac 30 MG/ML SDV IM ONE (20:24)
[2025-06-18] MEDS: Dexamethasone 4 MG/ML SDV IM ONE (20:25)
[2025-06-18 20:37] VITALS: BP 137/82; PULSE 89
== END 2025-06-18 20:31 | disposition home or self-care (01) ==
LOC: DL.ED 19:59
DX: G58.8 Other specified mononeuropathies (principal); I10 Essential (primary) hypertension; Z91.030 Bee allergy status; Z88.5 Allergy status to narcotic agent; Z79.899 Other long term (current) drug therapy
CPT/HCPCS: 96372; 99283; J1100; J1885